=== PATIENT | female | born 1955 | race African-American/Black ===

== ENCOUNTER → 2016-05-26 | Outpatient (CLI) | payer MEDICARE, OTHER ==
[2015-09-28 11:23] VITALS: BP 103/61
[~2016-05-26] MED LIST: DIAZEPAM10 MG PO; DOCU-27 PO; GABA600T PO; LISI-373 PO; LISI1TAB3 PO; OXYC-244 PO; OXYC1TAB7 PO; ROPI1TAB PO; SERT25TA PO
--- NOTE | 2016-05-26 11:10 | PAIN ---
DATE OF SERVICE: 05/26/2016 PROGRESS NOTE DIAGNOSES: 1. Cervicalgia with cervical spinal stenosis. 2. Headaches. HISTORY OF PRESENT ILLNESS: The patient is a 60-year-old female who returns for followup status post medication management with oxycodone. The patient reports she is doing fairly well with this. This is controlling the pain in the base of the neck and shoulders to a fair extent, but she is having increased headaches more frequently, with some blurred vision during this as well, aching in the head as well as a constant headache over the past month or so. The patient is worried that she may have some sort of intracranial process occurring. We did do an MRI scan of her head about a year and a half ago, which was normal except for some paranasal sinus congestion, but she is quite worried about this at this time. She did have a recent ophthalmologic checkup with the new lenses prescription for her glasses, but this has not helped with the blurred vision and headaches. The patient reports, it is an 8 on a scale of 10 in the head, neck and shoulder and is being very well controlled with the oxycodone by about 70%-75% without significant side effects. The patient rates the pain as an 8 on a scale of 10 today. The patient's old chart was reviewed as her current medication regimen updated. Current review of systems updated today as well. PHYSICAL EXAMINATION: VITAL SIGNS: Today, the patient's blood pressure is 129/88, pulse 81, respirations 20, temperature 98.2 degrees Fahrenheit, height is 5 feet 6 inches and weighs 207 pounds. GENERAL: She is awake, alert, oriented, appropriate, very pleasant demeanor. HEENT: Shows normocephalic, atraumatic. Extraocular movements are intact and symmetrical. Oral cavity shows mucous membranes are moist and pink. Dentition is intact. NECK: Shows anterior throat supple without palpable lymphadenopathy noted. Swallow reflex is symmetrical. CHEST: Shows normal on inspection. Breath sounds are clear bilaterally. HEART: Shows S1 and S2 clear. ABDOMEN: Soft, nontender, nondistended. No palpable organomegaly is noted. Posterior cervical musculature shows some moderate tenderness with palpation in the lower distribution of the cervical paraspinous muscles as well as superomedial and lateral trapezius bilaterally with fair, diffuse tenderness, but without trigger points or radiation demonstrated. EXTREMITIES: The patient's upper extremities show deep tendon reflexes at 1+ in the biceps and triceps tendons. Motor exam is strong with veteran appeals reviewer strength rated at 5/5 at his biceps and triceps flexion and equal. PLAN: Options were discussed with the patient. We will refill the patient's oxycodone for a 90-day supply. Also, we will reinitiate her physical therapy as she was unable to attend this last time that it was ordered because of the difference in phone number, which was not notified. Anyway, we will have this reinitiated. Also check MRI scan of the head and brain because of the increased frequency of headaches and visual disturbances. The patient will follow up after the MRI scan is obtained and we will call the results. We will follow up in the office in about 90 days or sooner if necessary. CLARE MARLEY MD DR: VIVIANE/sebastian JOB#: [id number] / [id number]
== END | disposition home or self-care (01) ==
LOC: PNCL 09:44
PROVIDERS: ATTEND Anesthesiology
DX: M54.2 Cervicalgia (principal); M48.02 Spinal stenosis, cervical region; R51 Headache
CPT/HCPCS: G0463

== ENCOUNTER → 2016-06-20 | Outpatient (CLI) | payer MEDICARE, OTHER ==
[2015-09-28 11:23] VITALS: BP 103/61
--- NOTE | 2016-06-20 10:41 | RAD ---
PROCEDURE Brain MRI without contrast. HISTORY Headaches and blurred vision. Colon cancer. TECHNIQUE Multiplanar and multi sequence magnetic resonance imaging of the brain was performed without contrast. COMPARISON 02/23/2015. FINDINGS There is no restricted diffusion to suggest acute or subacute infarction. There is no susceptibility effect to suggest hemorrhage. There is no mass effect or midline shift. There is no hydrocephalus. There are extensive scattered areas of T2/FLAIR hyperintensity throughout the cerebral white matter, a nonspecific finding. The orbits are unremarkable. There is mild paranasal sinus mucosal thickening. There is a small amount of fluid within the mastoid air cells. There are normal flow voids within the cerebral vessels. IMPRESSION 1. No acute intracranial finding 2. Extensive areas of signal change throughout the cerebral white matter, similar compared to the prior study. Given the age of the patient, this is likely due to chronic small vessel disease. Given the configuration and location of several lesions, demyelinating disease may also be considered in the appropriate clinical setting. Electronically signed by: Yana Carpenter (Jun 20, 2016 10:39:28)
== END ==
LOC: MRI 09:22
PROVIDERS: ATTEND Anesthesiology
DX: I73.89 Other specified peripheral vascular diseases (principal); I10 Essential (primary) hypertension; M19.90 Unspecified osteoarthritis, unspecified site; F41.9 Anxiety disorder, unspecified; F32.9 Major depressive disorder, single episode, unspecified; Z85.038 Personal history of other malignant neoplasm of large intestine
CPT/HCPCS: 70551

== ENCOUNTER → 2016-07-07 | Outpatient (CLI) | payer MEDICARE, OTHER ==
[2015-09-28 11:23] VITALS: BP 103/61
--- NOTE | 2016-07-07 12:57 | RAD ---
EXAM: DIGITAL SCREEN BILAT W/CAD HISTORY: Routine Screening. COMPARISON: 06/23/2015 Standard mammographic views are obtained of the bilateral breasts. This study was interpreted with the benefit of Computerized Aided Detection (CAD). FINDINGS: The breast parenchyma shows scattered fibroglandular densities. Breast parenchyma level II. There is no definite new suspicious spiculated mass or worrisome new cluster of microcalcifications. IMPRESSION: No definite new suspicious mass. BI-RADS CATEGORY: 1 NEGATIVE RECOMMENDED FOLLOW-UP: 12M 12 MONTH FOLLOW-UP PQRS compliance statement: Patient information was entered into a reminder system with a target due date for the next mammogram. Mammography is a sensitive method for finding small breast cancers, but it does not detect them all and is not a substitute for careful clinical examination. A negative mammogram does not negate a clinically suspicious finding and should not result in delay in biopsying a clinically suspicious abnormality. "Our facility is accredited by the [employer] Mammography Program."
== END | disposition home or self-care (01) ==
LOC: MAMMO 11:00
PROVIDERS: ATTEND Family Medicine
DX: Z12.31 Encounter for screening mammogram for malignant neoplasm of breast (principal)
CPT/HCPCS: G0202; 77067

== ENCOUNTER → 2016-08-18 | Outpatient (CLI) | payer MEDICARE, OTHER ==
[2015-09-28 11:23] VITALS: BP 103/61
--- NOTE | 2016-08-18 23:27 | PAIN ---
DATE OF SERVICE: 08/18/2016 DIAGNOSES: Cervical spinal stenosis with cervicalgia. HISTORY OF PRESENT ILLNESS: This is a 60-year-old female who returns for followup status post medication management with oxycodone 7.5 mg. The patient reports she is doing fairly well with this very stable regimen. She was having some headaches and we did an MRI scan of her brain on the last visit only showing some changes in vasculature consistent with age. No other acute findings. The patient was given a report copy of this as well. The patient reports still significant pain in the base of the neck, right shoulder, rates as 9 on a scale of 10, sharp and aching all today, but does very well with the medications about 70% improvement with medications and without side effects with her oxycodone. The patient reports no new motor or sensory deficits or other complaints, but has had some increased pain secondary to some rainy weather we had recently, but otherwise reports she is doing fairly well day-to-day seeking care of her granddaughter first who had seizure disorder and this has been somewhat stressful for her as well. Otherwise, no new motor or sensory deficits or other complaints. The patient reports her pain is a 9 on a scale of 10 at its worst. Currently, a 4 on a scale of 10 today. PHYSICAL EXAMINATION: VITAL SIGNS: The patient's blood pressure 102/61, pulse 78, respirations 16, temperature is 97.8 degrees Fahrenheit, and weight is 206 pounds. GENERAL: The patient is awake, alert, oriented, appropriate, very pleasant demeanor. HEENT: Head shows normocephalic, atraumatic. Extraocular movements are intact and symmetrical. Oral cavity shows mucous membranes moist and pink. Dentition is intact. NECK: Shows anterior throat supple without palpable lymphadenopathy noted. Swallow reflex is symmetrical. Posterior cervical musculature shows some moderate tenderness with palpation in the inferior aspect of the cervical paraspinous muscles as well as superior medial and lateral trapezius, but symmetrical on inspection without atrophy, hypertrophy and with good rotational motion of the cervical spine, somewhat guarded with extension, but not with forward flexion, right or left lateral rotation. EXTREMITIES: Upper extremities showed deep tendon reflexes at 2+ in the biceps and triceps tendons. Motor exam is strong with foundation digger strength rated at 5/5 as is biceps and triceps flexion. Peripheral pulses are 2+. No peripheral edema bilaterally. Options were discussed with the patient and the patient's old chart was reviewed as her current medication regimen and updated. Current review of systems updated to date as well. We will refill the patient's oxycodone for a 6-day period 2 months with instructions, side effects to be aware of. The patient will also have urinalysis today as a routine screening. The patient has had appropriate K-TRACS reporting to date as well as appropriate urinalysis to date. We will recheck this as well today on schedule. The patient will follow up in approximately 2 months or sooner if necessary. CLARE MARLEY MD DR: VIVIANE/sebastian JOB#: [id number] / [id number]
== END | disposition home or self-care (01) ==
LOC: PNCL 09:33
PROVIDERS: ATTEND Anesthesiology
DX: M48.02 Spinal stenosis, cervical region (principal)
CPT/HCPCS: G0463

== ENCOUNTER → 2016-10-06 | Outpatient (CLI) | payer MEDICARE, OTHER ==
[2015-09-28 11:23] VITALS: BP 103/61
--- NOTE | 2016-10-06 16:51 | PAIN ---
DATE OF SERVICE: 10/06/2016 PROGRESS NOTE FOR PAIN CLINIC DIAGNOSES: Cervical spinal stenosis with cervicalgia. HISTORY OF PRESENT ILLNESS: The patient is a 60-year-old female, who returns for followup status post medication management with oxycodone 7.5 mg. The patient has been doing very well with this. She reports that she continues to do well with about 70%-75% improvement with her pain and without significant side effects. The patient reports occasional constipation, but does take care with increase hydration and some MiraLax. The patient reports she still has difficulty sleeping because her neck and right shoulder hurting, but during the day, is very well controlled. She is taking her medication. The patient reports it is 8 on a scale of 10, and is worst is a 9 on a scale of 10. No new motor or sensory deficits or other findings. The patient does complain of some yeast infection underneath the right breast. We decreased ____[id number] antifungals try for this as well. PHYSICAL EXAMINATION: VITAL SIGNS: The patient's blood pressure is 130/99, pulse 83, respirations 18, temperature is 98.0 degrees Fahrenheit, weight is 209 pounds. GENERAL: The patient is awake, alert, oriented, appropriate, very pleasant demeanor. HEENT: Head shows normocephalic, atraumatic. Extraocular movements are intact and symmetrical. Oral cavity, mucous membranes are moist and pink. Dentition is intact. NECK: Shows anterior throat supple without palpable lymphadenopathy noted. Swallow reflex is symmetrical. CHEST: Shows normal on inspection. Breath sounds are clear to auscultation bilaterally. HEART: Shows S1 and S2 clear. ABDOMEN: Soft, nontender, nondistended. No palpable organomegaly, no rebound or guarding demonstrated. She has well-healed surgical scars noted. BACK: The patient's back shows spine grossly midline. Lumbar and cervical lordotic curvature is normal in appearance and thoracic kyphotic curvature is normal in appearance. Cervical paraspinous muscle shows some moderate tenderness with palpation in the base of the neck, more on the right side than the left with some tenderness in the trapezius on that side, but without significant trigger points, without radiation of pain. EXTREMITIES: Upper extremities showed deep tendon reflexes 1+ in the biceps and triceps tendons. Motor exam is strong with hemmer automatic strength rated at 5/5 as is biceps and triceps flexion. PLAN: Options were discussed with the patient and the patient's old chart was reviewed as her current medication regimen updated. Current review of systems updated today as well. We will refill the patient's oxycodone for a 2-month supply. The patient was given instruction as well as side effects to be aware of. She has had appropriate K-TRACS reporting as well as appropriate urinalysis to date and the patient was given 2-month prescription, also for the yeast infection, we will recommend clotrimazole cream or sprays ____ similar product. She will check with her pharmacist on the [id number] remedies for this as well and follow up as scheduled. CLARE MARLEY MD DR: VIVIANE/sebastian JOB#: [id number] / [id number]
== END | disposition home or self-care (01) ==
LOC: PNCL 09:59
PROVIDERS: ATTEND Anesthesiology
DX: M48.02 Spinal stenosis, cervical region (principal); M54.2 Cervicalgia
CPT/HCPCS: G0463

== ENCOUNTER → 2016-12-01 | Outpatient (CLI) | payer MEDICARE, OTHER ==
[2015-09-28 11:23] VITALS: BP 103/61
[~2016-12-01] MED LIST changes: +DOCU-109 PO; -DOCU-27 PO; -OXYC-244 PO; +OXYC-327 PO
== END | disposition home or self-care (01) ==
LOC: PNCL 09:58
PROVIDERS: ATTEND Anesthesiology
DX: M54.2 Cervicalgia (principal)
CPT/HCPCS: G0463

== ENCOUNTER → 2017-01-08 | Outpatient (CLI) | payer MEDICARE, OTHER ==
[2015-09-28 11:23] VITALS: BP 103/61
[~2017-01-08] MED LIST changes: +IOHEXOL 240 MG/ML 50ML VIAL. PO ONE; +IOHEXOL 300 MG/ML 75 ML VIAL IV ONE
--- NOTE | 2017-01-08 13:43 | RAD ---
CT of the chest, abdomen and pelvis with contrast, 01/08/2017: History: Colonic malignancy, follow-up Multidetector CT imaging was performed following oral and IV administration of contrast. Comparison is made to a study from 10/06/2015. Small mediastinal lymph nodes are seen without evidence of pathologic enlargement. Coronary artery calcifications are noted. There are mild emphysematous changes in the lungs. Mild dependent opacities are compatible with atelectasis. No pulmonary mass is evident. There is a coarse parenchymal calcification in the left base. No pleural fluid is present. No hepatic abnormality is detected. The gallbladder is unremarkable. No pancreatic abnormality is seen. The spleen is of normal size. Small unchanged bilateral renal lesions are probably cysts. Several of these are too small to definitively characterize. The kidneys show no evidence of obstruction. No adrenal abnormality is detected. There is mild aortoiliac calcific plaquing. No abdominal or pelvic adenopathy is seen. The bowel loops are not dilated. No free fluid is evident in the abdomen or pelvis. IMPRESSION: No CT evidence of metastatic disease in the chest, abdomen or pelvis. PQRS Compliance Statement: One or more of the following individualized dose reduction techniques were utilized for this examination: 1. Automated exposure control 2. Adjustment of the mA and/or kV according to patient size 3. Use of iterative reconstruction technique
== END | disposition home or self-care (01) ==
LOC: CT 08:22
PROVIDERS: ATTEND Internal Medicine Hematology & Oncology
DX: C18.7 Malignant neoplasm of sigmoid colon (principal); I25.10 Atherosclerotic heart disease of native coronary artery without angina pectoris
CPT/HCPCS: 71260; 74177

== ENCOUNTER → 2017-01-26 | Outpatient (CLI) | payer MEDICARE, OTHER ==
[2015-09-28 11:23] VITALS: BP 103/61
[~2017-01-26] MED LIST changes: -IOHEXOL 240 MG/ML 50ML VIAL. PO ONE; -IOHEXOL 300 MG/ML 75 ML VIAL IV ONE
--- NOTE | 2017-01-26 11:43 | PAIN ---
DATE OF SERVICE: 01/26/2017 PROGRESS NOTE FOR PAIN CLINIC DIAGNOSES: 1. Cervicalgia. 2. Cervical spinal stenosis. HISTORY OF PRESENT ILLNESS: The patient is a 61-year-old female who returns for followup, status post medication management with oxycodone. The patient reports she is doing very well with this, been on a very stable regimen, 7.5 mg, taking this up to 4 times daily. The patient reports she has been doing quite well with the pain control, still has pain in the base of the neck and shoulder bilaterally, also into the right upper extremity, but it is sporadic. The patient reports it is not there all the time, reports that when it is, it is a 9 on a scale of 10 and at its least, it is an 8 on a scale of 10, but today, it is a 3 on a scale of 10. The patient reports she has some difficulty sleeping at night because of the pain, but also does not sleep well. She sleeps about 3 hours at a time. The patient reports no new motor or sensory deficits. Reports the pain is sharp at times and aching other times. PHYSICAL EXAMINATION: VITAL SIGNS: Shows blood pressure 142/97, pulse 87, respirations 20, temperature is 97.9 degrees Fahrenheit. Height is 5 feet 6 inches, weight is 216 pounds. GENERAL: The patient is awake, alert, oriented, appropriate, very pleasant demeanor. HEENT: Head shows normocephalic, atraumatic. Extraocular movements are intact and symmetrical. Oral cavity shows mucous membranes moist and pink. Dentition is intact. NECK: Shows anterior throat supple. CHEST: Shows normal on inspection. Breath sounds are clear to auscultation bilaterally. HEART: Shows S1 and S2 clear. ABDOMEN: Soft, nontender, nondistended. No palpable organomegaly is noted. BACK: Shows spine grossly in the midline. Cervical paraspinous muscle shows some moderate tenderness with palpation, but symmetrical in the inferior aspect of the paraspinous musculature as well as superior medial and lateral trapezius, but without trigger points, without significant radiation. EXTREMITIES: The patient's upper extremities show deep tendon reflexes 1+ in the biceps and triceps tendons. Motor exam is strong with 5/5 etcher enameling strength, biceps and triceps flexion. Pulses are 2+ in radial distribution. No peripheral edema is noted. Options were discussed with the patient and the patient's old chart was reviewed. Her current medication regimen updated. Current review of systems updated today as well and we will refill the patient's oxycodone for a 2-month prescription. The patient has had appropriate K-TRACS reporting as well as appropriate urinalysis to date. We will renew her narcotic contract today as well as it has been years since the last one. The patient was given instructions as well as side effects to be aware with the medication and will follow up in approximately 2 months. The patient was also counseled as to diet, activity, exercise and hydration, especially as she is on opioid medication to combat constipation, where she is doing a good job so far. CLARE MARLEY MD DR: VIVIANE/sebastian JOB#: [id number] / [id number]
== END | disposition home or self-care (01) ==
LOC: PNCL 09:17
PROVIDERS: ATTEND Anesthesiology
DX: M48.02 Spinal stenosis, cervical region (principal); M25.511 Pain in right shoulder
CPT/HCPCS: G0463

== ENCOUNTER → 2017-05-22 | Outpatient (CLI) | payer MEDICARE, OTHER | END | disposition home or self-care (01) | LOC: PNCL 11:46 | DX: M48.02 Spinal stenosis, cervical region (principal) | CPT/HCPCS: G0463 ==

== ENCOUNTER → 2017-07-17 | Outpatient (CLI) | payer MEDICARE, OTHER | END | disposition home or self-care (01) | LOC: PNCL 11:19 | DX: M48.02 Spinal stenosis, cervical region (principal) | CPT/HCPCS: G0463 ==

== ENCOUNTER → 2017-09-11 | Outpatient (CLI) | payer MEDICARE, OTHER | END | disposition home or self-care (01) | LOC: PNCL 08:47 | DX: M48.02 Spinal stenosis, cervical region (principal) | CPT/HCPCS: G0463 ==

== ENCOUNTER → 2017-11-06 | Outpatient (CLI) | payer MEDICARE, OTHER | END | disposition home or self-care (01) | LOC: PNCL 09:06 | DX: M48.02 Spinal stenosis, cervical region (principal) | CPT/HCPCS: G0463 ==

== ENCOUNTER → 2017-12-25 | Outpatient (CLI) | payer MEDICARE, OTHER | END | disposition home or self-care (01) | LOC: PNCL 08:54 | DX: M48.02 Spinal stenosis, cervical region (principal); I10 Essential (primary) hypertension; F41.9 Anxiety disorder, unspecified; G43.909 Migraine, unspecified, not intractable, without status migrainosus; F32.9 Major depressive disorder, single episode, unspecified; K21.0 Gastro-esophageal reflux disease with esophagitis; Z86.010 Personal history of colon polyps; Z85.038 Personal history of other malignant neoplasm of large intestine | CPT/HCPCS: G0463 ==

== ENCOUNTER → 2018-02-19 | Outpatient (CLI) | payer MEDICARE, OTHER ==
[2015-09-28 11:23] VITALS: BP 103/61
--- NOTE | 2018-02-19 22:27 | PAIN ---
DATE OF SERVICE: 02/19/2018 PROGRESS NOTE FOR PAIN CLINIC DIAGNOSES: Cervicalgia with cervical spinal stenosis. HISTORY OF PRESENT ILLNESS: The patient is a 62-year-old female who returns for followup status post medication management with oxycodone and gabapentin. The patient reports she has been doing very well, has been on very stable regimen indeed, has been on very stable medication regimen for extended period of time. The patient reports no significant side effects with the medication. The oxycodone has decreased the pain significantly by about 75% by her estimation for most times. The patient reports she still has some pain in the neck and shoulder and in the right shoulder, it has been bothering her quite a bit. She reports that she has a bone spur in the shoulders. She is following up with her orthopedic surgeon later this month and has an MRI scan this week. The patient reports otherwise doing fairly well with the neck is fairly tolerated with the pain medication, which is not causing any sedation, nausea or constipation or itching. The patient reports her pain is worse at 9, average at about 8 at its least and is an 8 on a scale of 10 today as well, mainly from the right shoulder, which is becoming more and more painful. The patient reports no new motor or sensory deficits and no new changes. The patient reports it is difficult to sleep with the right shoulder and only get about 2-3 hours of sleep at night when she lays on her right side, especially. PHYSICAL EXAMINATION: VITAL SIGNS: The patient's blood pressure 136/82, pulse 83, respirations are 18, temperature 98.0 degrees Fahrenheit, height is 5 feet 6 inches and weight is 212 pounds. GENERAL: The patient is awake, alert, oriented, appropriate and very pleasant demeanor. HEENT: Head shows normocephalic and atraumatic. Extraocular movements are intact and symmetrical. Oral cavity, mucous membranes are moist and pink. Dentition is intact NECK: Shows anterior throat supple without palpable lymphadenopathy noted. Swallow reflex is symmetrical. CHEST: Shows normal on inspection. Breath sounds are clear to auscultation bilaterally. HEART: Shows S1 and S2 clear. No murmurs auscultated. ABDOMEN: Soft, nontender and nondistended. No palpable organomegaly is noted. No rebound or guarding demonstrated. BACK: Shows spine grossly in the midline. Normal appearing thoracic kyphosis and lumbar lordotic curvature. Cervical paraspinous muscle shows some moderate tenderness but only diffusely throughout the upper, middle and lower distribution of the paraspinous muscles bilaterally into the superior medial trapezius. Right shoulder shows significant tenderness with any attempted abduction even greater than about 10-15 degrees with very significant pain in the anterior aspect of the shoulder as well as the superior aspect of the right shoulder. EXTREMITIES: Upper extremity deep tendon reflexes are 2+ in the biceps, triceps tendons. Motor exam is 5/5 with left jewelry manager strength in approximately 3/5 with right jewelry manager strength. Peripheral pulses are 2+ radial distribution. No peripheral edema is noted. Options were discussed with the patient. The patient's old chart was reviewed as well as her current medication regimen updated. Current review of systems updated today as well. We will refill the patient's oxycodone and she has had appropriate K-TRACS reporting as well as appropriate urinalysis to date and will fill this for a 60-day prescription as well as gabapentin at 600 mg 3 times daily. The patient was given instructions as well as side effects to be aware of with each of the medication. We will follow up in approximately 2 months or sooner as scheduled. CLARE MARLEY MD DR: VIVIANE/sebastian JOB#: [id number] / [id number]
== END | disposition home or self-care (01) ==
LOC: PNCL 09:20
PROVIDERS: ATTEND Anesthesiology
DX: M48.02 Spinal stenosis, cervical region (principal)
CPT/HCPCS: G0463

== ENCOUNTER → 2018-04-16 | Outpatient (CLI) | payer MEDICARE, OTHER ==
[2015-09-28 11:23] VITALS: BP 103/61
[~2018-04-16] MED LIST changes: -OXYC-327 PO; +OXYC1TAB19 PO
--- NOTE | 2018-04-16 17:47 | PAIN ---
DATE OF SERVICE: 04/16/2018 DIAGNOSES: Cervical spinal stenosis with cervicalgia: HISTORY OF PRESENT ILLNESS: The patient is a 62-year-old female who returns for followup status post medication management with oxycodone and gabapentin. The patient reports she is doing fairly well with this, but her shoulder on the right side has been hurting significantly. The patient is going for an MRI of it later today actually and then will follow up with an orthopedic surgeon, she does not have one yet, but she will have this evaluated once the MRI is finished. The patient reports still pain is aching and dull; shooting, sharp into the right hand, right arm and fingers with numbness and tingling; stabbing, cramping, burning, sometimes becoming more constant and aching in the neck, but generally well controlled with the oxycodone and gabapentin. The patient reports the pain is 9 on a scale of 10 at its worst, 8 on average, 8 at its least and is an 8 today. The patient reports it is mainly in her shoulder, otherwise, her neck is doing fairly well, but she is only sleeping about 2-3 hours at a time because the pain in her shoulder is waking her up frequently. The patient reports no new motor or sensory deficits or other complaints. PHYSICAL EXAMINATION: VITAL SIGNS: The patient's blood pressure is 137/101, pulse 81, respirations rate 18, temperature 97.8 degrees Fahrenheit, height is 5 feet 6 inches, weight is 211 pounds. GENERAL: The patient is awake, alert, oriented, appropriate, very pleasant demeanor. HEENT: Shows normocephalic, atraumatic. Extraocular muscles are intact and symmetrical. Oral cavity: Mucous membranes moist and pink. Dentition is intact. NECK: Shows anterior throat supple without palpable lymphadenopathy noted. Swallow reflex is symmetrical. CHEST: Shows normal on inspection. Breath sounds clear to auscultation bilaterally. HEART: Shows S1, S2 clear. No murmurs auscultated. ABDOMEN: Soft, nontender, nondistended. No palpable organomegaly is noted. No rebound or guarding demonstrated. BACK: Shows spine grossly in the midline. Normal-appearing thoracic kyphosis and minor flattening of lumbar lordotic curvature. Cervical lordotic curvature is intact. Cervical paraspinous muscle shows symmetrical on inspection. On palpation, it shows some moderate tenderness diffusely, but only diffusely in the inferior aspect of the cervical paraspinous muscles and some in the middle aspect of the cervical paraspinous musculature, but without radiation, without atrophy or hypertrophy. The patient has good rotation of motion of cervical spine, both laterally greater than 45 degrees right and left, also full extension as well as full forward flexion without significant increase in pain. The patient's upper extremities show deep tendon reflexes 2+ in the biceps and triceps tendons. Motor exam is strong with nutritional health coach strength rated 5/5 on the left and 4/5 to 3/5 on the right. This is true with bicep and tricep flexion on the right 3/5 and 5/5 on the left as well. The patient's right shoulder shows significant tenderness with palpation anterior, posterior and lateral deltoid diffusely. With abduction, it is very tender, the patient is only able to abduct about 45 degrees from the side of her body without significant pain in the posterior aspect of the shoulder. EXTREMITIES: Peripheral pulses upper extremities are 2+ radial. No peripheral edema is noted bilaterally. ASSESSMENT AND PLAN: Options were discussed with the patient. The patient's old chart was reviewed as was her current medication regimen updated. Current review of systems updated today as well. We will refill the patient's oxycodone and gabapentin for a 2-month prescription as the patient has had appropriate K-TRACS reporting as well as appropriate urinalysis to date. The patient was given instruction as well as side effects to be aware of each of the medication. Again, the patient will follow up with her MRI scan today and orthopedist afterwards and will return in approximately 2 months or sooner if necessary. CLARE MARLEY MD DR: VIVIANE/sebastian JOB#: [id number] / [id number]
== END | disposition home or self-care (01) ==
LOC: PNCL 09:40
PROVIDERS: ATTEND Anesthesiology
DX: M48.02 Spinal stenosis, cervical region (principal); I10 Essential (primary) hypertension; K21.9 Gastro-esophageal reflux disease without esophagitis; F17.210 Nicotine dependence, cigarettes, uncomplicated
CPT/HCPCS: G0463

== ENCOUNTER → 2018-06-26 | Outpatient (CLI) | payer MEDICARE, OTHER ==
[2015-09-28 11:23] VITALS: BP 103/61
--- NOTE | 2018-06-26 19:21 | PAIN ---
DATE OF SERVICE: 06/26/2018 DIAGNOSIS: Cervical spinal stenosis with cervicalgia. HISTORY OF PRESENT ILLNESS: The patient is a 62-year-old female who returns for followup status post medication management with oxycodone 7.5 mg. The patient did very well with this, has been on very stable regimen, reports she is still doing quite well, reports her pain is a 9 on a scale of 10 at its worst, 6 on average and 2 at its least, is a 3 today. The patient reports pain in the neck and the bilateral shoulders, more on the right than the left, but very well controlled with the oxycodone. The patient reports she is sleeping fairly well at night, does not awaken her from sleep, that she does not always awaken from the pain, sometimes every 3 hours she can awaken from sleep just because she is unable to sleep. The patient reports otherwise she is increasing her distance walking and doing activities at home with traveling with greater ease and comfort without significant impairment, no significant side effects, reports her overall improvement about 70-80% with the medications, again without side effects. The patient reports no new motor or sensory deficits, no new changes. Describes the pain as aching and dull, sometimes radiating to the right shoulder, but only rarely. PHYSICAL EXAMINATION: VITAL SIGNS: The patient's blood pressure is 136/81, pulse 86, respirations are 18, temperature 97.4 degrees Fahrenheit, height is 5 feet 6 inches, weight is 216 pounds. GENERAL: The patient is awake, alert, oriented, appropriate, very pleasant demeanor. HEENT: Normocephalic, atraumatic. Extraocular movements are intact and symmetrical. Oral cavity: Mucous membranes are moist and pink. Dentition is intact. NECK: Shows anterior throat supple without palpable lymphadenopathy noted. Swallow reflex symmetrical. CHEST: Shows normal on inspection. Breath sounds clear to auscultation bilaterally. HEART: Shows S1, S2 clear. No murmurs auscultated. ABDOMEN: Soft, nontender, nondistended. No palpable organomegaly is noted. No rebound or guarding demonstrated. BACK: Shows spine grossly in the midline, normal cervical lordotic curvature. Cervical paraspinous muscle shows symmetrical on inspection, with palpation shows some mild tenderness in the inferior aspect of cervical paraspinous muscles and superior medial trapezius as well as lateral trapezius, slightly more tender on the right than the left, but with good rotational motion of the cervical spine without difficulty, both laterally as well as extension and flexion. EXTREMITIES: Upper extremities show deep tendon reflexes 2+ in the biceps, triceps tendons. 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 Peripheral pulses are 2+ radial distribution. No peripheral edema is noted. Options were discussed with the patient. The patient's old chart was reviewed as her current medication regimen updated. Current review of systems updated today as well. We will refill the patient's oxycodone for 2-month prescription. She has had appropriate K-TRACS reporting as well as appropriate urinalyses to date. We will also repeat urinalysis today as a routine screening. I have renewed the patient's narcotic contract. The patient was given a copy of this as well and will follow up in approximately 2 months or sooner as necessary. The patient was given instructions as well as side effects to be aware of each of medications and will follow up as noted. CLARE MARLEY MD DR: VIVIANE/sebastian JOB#: [id number] / [id number]
== END | disposition home or self-care (01) ==
LOC: PNCL 09:18
PROVIDERS: ATTEND Anesthesiology
DX: M48.02 Spinal stenosis, cervical region (principal); I10 Essential (primary) hypertension; Z87.891 Personal history of nicotine dependence
CPT/HCPCS: G0463

== ENCOUNTER → 2018-08-21 | Outpatient (CLI) | payer MEDICARE, OTHER ==
[2015-09-28 11:23] VITALS: BP 103/61
[~2018-08-21] MED LIST changes: +ONDA4TAB7 PO
--- NOTE | 2018-08-21 23:33 | PAIN ---
DATE OF SERVICE: 08/21/2018 PROGRESS NOTE FOR PAIN CLINIC: DIAGNOSES: Cervical spinal stenosis with cervicalgia. HISTORY OF PRESENT ILLNESS: The patient is a 62-year-old female who returns for followup status post medication management with oxycodone well as gabapentin for persistent cervical spinal stenosis and cervicalgia. The patient reports she has been doing fairly well on the medication with about 75% improvement overall without significant side effects from the oxycodone as well as gabapentin. The patient's chief complaint is that her right foot is hurting. She has what appears to be a plantar's wart on the sole of the right foot at about the metatarsal head more to the lateral aspect. The patient reports it is significantly tender. She has been walking favoring her right leg significantly, which is causing some back pain as well as the neck pain and shoulder pain. The patient reports otherwise doing fairly well. Medications have been stable regimen. No new side effects. No new changes. She is following up with a ticket sales agent later this week to evaluate the foot as well. The patient reports it is waking her from sleep at least 3-4 times at night, although her neck is causing some pain as well. She needs to reposition, take pain medication or get out of bed, change positions to get better. The patient otherwise has been doing fairly well with distance walking except for her right foot and doing household activities without significant side effects from the medication. The patient reports the pain is a 9 on a scale of 10 at its worst and this is due to her foot, least and average, is a 9 today again with the foot. The neck and shoulder pain is about 4. The patient reports no new changes. The patient describes the neck and the shoulder pain is an aching pain, it is dull and sharp. Foot is more of stabbing, becoming more constant pain. PHYSICAL EXAMINATION: VITAL SIGNS: Today, the patient's blood pressure is 156/98, pulse is 80, respirations 18, temperature 97.8 degrees Fahrenheit. Height is 5 feet 6 inches, weight is 221 pounds. GENERAL: The patient is awake, alert, oriented, appropriate, very pleasant demeanor. HEENT: Head shows normocephalic, atraumatic. Extraocular movements are intact and symmetrical. Oral cavity: Mucous membranes moist and pink. Dentition is intact. NECK: Shows anterior throat supple without palpable lymphadenopathy noted. Swallow reflex symmetrical. CHEST: Shows normal on inspection. Breath sounds clear to auscultation bilaterally. HEART: Shows S1, S2 clear. No murmurs auscultated. ABDOMEN: Soft, nontender, nondistended. No palpable organomegaly is noted. No rebound or guarding demonstrated. BACK: The patient's neck shows good rotational motion both laterally greater than 45 degrees right and left as well as full extension, full forward flexion without significant pain reported. EXTREMITIES: The patient's upper extremities show deep tendon reflexes 2+ in the biceps, triceps tendons. 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 Shoulder shrug is mildly tender bilaterally with resistance, but no loss of strength on resistance. Peripheral pulses are 2+ radial distribution. No peripheral edema is noted. Options were discussed with the patient. The patient's old chart was reviewed as his current medication regimen updated. Current review of systems updated today as well and we discussed a potential for physical therapies, interventional techniques and she is adamantly against any interventional techniques with her neck as we had discussed these in the past as well. She is doing quite well with her medication regimen. We will refill this for 2-month period. The patient has had appropriate K-TRACS reporting as well as appropriate urinalysis to date. We will have urinalysis taken today as well for a routine screening. The patient will follow up in approximately 2 months or sooner as necessary, was given instructions as well as side effects to be aware of with the medication and again was encouraged to follow up with her right foot with her ticket sales agent later this week. CLARE MARLEY MD DR: VIVIANE/sebastian JOB#: [id number] / [id number]
== END | disposition home or self-care (01) ==
LOC: PNCL 09:35
PROVIDERS: ATTEND Anesthesiology
DX: M48.02 Spinal stenosis, cervical region (principal); M25.519 Pain in unspecified shoulder; M54.9 Dorsalgia, unspecified
CPT/HCPCS: G0463

== ENCOUNTER 2018-09-20 22:22 | Emergency (ER) | payer MEDICARE, OTHER ==
[~2018-09-20] VITALS: Ht 167.6 cm; Wt 97.5 kg
[~2018-09-20 22:22] MED LIST changes: -ONDA4TAB7 PO
[2018-09-20] MEDS ORDERED: ONDANSETRON PF 4 MG/2 ML VIAL. IV ONE (23:30)
[2018-09-20] MEDS ORDERED: fentaNYL PF VIAL 100 MCG/2 ML VIAL IV ONE (23:30)
[2018-09-20] MEDS ORDERED: IV NORMAL SALINE 1000ML BAG 1,000 ML IV ONE (23:30)
--- NOTE | 2018-09-20 23:31 | PHYS DOC ---
Past Medical History Past Medical History: Cancer, Hypertension Additional Past Medical Histor: neuropathy Past Surgical History: Other Additional Past Surgical Histo: colon resection, hernia repair Alcohol Use: Rarely Drug Use: None Adult General Chief Complaint Chief Complaint: NAUSEA/VOMITING/DIARRHA HPI HPI Patient is a 62 year old F who presents with abdominal pain. She states the pain began this morning around 8:00am. She reports diarrhea and nausea. She describes the pain as a stabbing sensation that is located in the mid abdomen with some radiation to the right side. There is also radiation of pain down the right leg. She has not eaten anything since yesterday afternoon. She denies pain with urination or blood in her stool. She reports feeling lightheaded with hot and cold flashes as well. Review of Systems Review of Systems Constitutional: Denies fever or chills [] Eyes: Denies change in visual acuity, redness, or eye pain [] HENT: Denies nasal congestion or sore throat [] Respiratory: Denies cough or shortness of breath [] Cardiovascular: No additional information not addressed in HPI [] GI: Reports abdominal pain, nausea, vomiting, bloody stools or diarrhea [] : Denies dysuria or hematuria [] Musculoskeletal: Denies back pain or joint pain [] Integument: Denies rash or skin lesions [] Neurologic: Denies headache, focal weakness or sensory changes [] Endocrine: Denies polyuria or polydipsia [] All other systems were reviewed and found to be within normal limits, except as documented in this note. Current Medications Current Medications Current Medications Medications (Trade) Dose Ordered Sig/Zane Start Time Stop Time Status Last Admin Dose Admin Fentanyl Citrate (Fentanyl 2ml Vial) 50 mcg 1X ONCE 09/20/18 23:30 09/20/18 23:31 DC 09/20/18 23:41 50 MCG Morphine Sulfate (Morphine Sulfate) 6 mg 1X ONCE 09/21/18 00:30 09/21/18 00:31 DC 09/21/18 00:37 6 MG Ondansetron HCl (Zofran) 4 mg 1X ONCE 09/21/18 00:30 09/21/18 00:31 DC 09/21/18 00:37 4 MG Sodium Chloride 1,000 ml @ 1,000 mls/hr 1X ONCE 09/20/18 23:30 09/21/18 00:29 DC 09/20/18 23:42 1,000 MLS/HR Allergies Allergies Allergies Coded Allergies Type Severity Reaction Last Updated Verified Penicillins Allergy Intermediate Swelling 02/19/18 Yes cefuroxime Allergy Intermediate bBlisters hands. Joiny swelling 02/19/18 Yes ertapenem Allergy Intermediate Rash 02/19/18 Yes Physical Exam Physical Exam Constitutional: Well developed, well nourished, no acute distress, non-toxic appearance. [] HENT: Normocephalic, atraumatic, bilateral external ears normal, oropharynx moist, no oral exudates, nose normal. [] Eyes: PERRLA, EOMI, conjunctiva normal, no discharge. [] Neck: Normal range of motion, no tenderness, supple, no stridor. [] Cardiovascular:Heart rate regular rhythm, no murmur [] Lungs & Thorax: Bilateral breath sounds clear to auscultation [] Abdomen: Bowel sounds normal, tenderness to palpation in LRQ and RLQ [] Skin: Warm, dry, no erythema, no rash. [] Back: No tenderness, no CVA tenderness. [] Extremities: No tenderness, no cyanosis, no clubbing, ROM intact, no edema. [] Neurologic: Alert and oriented X 3, normal motor function, normal sensory function, no focal deficits noted. [] Psychologic: Affect normal, judgement normal, mood normal. [] Current Patient Data Vital Signs Vital Signs Date Time Temp Pulse Resp B/P (MAP) Pulse Ox O2 Delivery O2 Flow Rate FiO2 09/21/18 03:41 88 16 117/64 (81) 98 Room Air 09/20/18 22:35 97.8 97.8 Lab Values Laboratory Tests Test 09/20/18 23:20 09/21/18 01:46 White Blood Count 4.5 x10^3/uL (4.0-11.0) Red Blood Count 4.84 x10^6/uL (3.50-5.40) Hemoglobin 15.3 g/dL (12.0-15.5) Hematocrit 44.5 % (36.0-47.0) Mean Corpuscular Volume 92 fL (79-100) Mean Corpuscular Hemoglobin 32 pg (25-35) Mean Corpuscular Hemoglobin Concent 34 g/dL (31-37) Red Cell Distribution Width 12.6 % (11.5-14.5) Platelet Count 161 x10^3/uL (140-400) Neutrophils (%) (Auto) 72 % (31-73) Lymphocytes (%) (Auto) 23 % (24-48) L Monocytes (%) (Auto) 4 % (0-9) Eosinophils (%) (Auto) 0 % (0-3) Basophils (%) (Auto) 0 % (0-3) Neutrophils # (Auto) 3.3 x10^3uL (1.8-7.7) Lymphocytes # (Auto) 1.1 x10^3/uL (1.0-4.8) Monocytes # (Auto) 0.2 x10^3/uL (0.0-1.1) Eosinophils # (Auto) 0.0 x10^3/uL (0.0-0.7) Basophils # (Auto) 0.0 x10^3/uL (0.0-0.2) Urine Collection Type Unknown Urine Color Alysia Urine Clarity Clear Urine pH 5.0 Urine Specific [place] 1.025 Urine Protein Negative mg/dL (NEG-TRACE) Urine Glucose (UA) Negative mg/dL (NEG) Urine Ketones (Stick) Trace mg/dL (NEG) Urine Blood Negative (NEG) Urine Nitrite Negative (NEG) Urine Bilirubin Small (NEG) Urine Urobilinogen Dipstick 1.0 mg/dL (0.2 mg/dL) Urine Leukocyte Esterase Trace (NEG) Urine RBC Occ /HPF (0-2) Urine WBC 1-4 /HPF (0-4) Urine Squamous Epithelial Cells Few /LPF Urine Bacteria Few /HPF (0-FEW) Urine Mucus Marked /LPF Sodium Level 137 mmol/L (136-145) Potassium Level 3.9 mmol/L (3.5-5.1) Chloride Level 102 mmol/L (98-107) Carbon Dioxide Level 22 mmol/L (21-32) Anion Gap 13 (6-14) Blood Urea Nitrogen 11 mg/dL (7-20) Creatinine 0.7 mg/dL (0.6-1.0) Estimated GFR (Cockcroft-Gault) 101.9 BUN/Creatinine Ratio 16 (6-20) Glucose Level 103 mg/dL (70-99) H Calcium Level 8.8 mg/dL (8.5-10.1) Total Bilirubin 0.8 mg/dL (0.2-1.0) Aspartate Amino Transferase (AST) 24 U/L (15-37) Alanine Aminotransferase (ALT) 22 U/L (14-59) Alkaline Phosphatase 97 U/L (46-116) Total Protein 7.3 g/dL (6.4-8.2) Albumin 3.7 g/dL (3.4-5.0) Albumin/Globulin Ratio 1.0 (1.0-1.7) Lipase 126 U/L (73-393) Laboratory Tests 09/20/18 23:20 Laboratory Tests 09/21/18 01:46 EKG EKG [] Radiology/Procedures Radiology/Procedures [] Impressions: IMPRESSION: Limited evaluation of solid abdominal and pelvic organs due to lack of IV contrast. 1. No bowel obstruction. 2. Multiple punctate bilateral nonobstructing renal stones. 3. Multiple right renal lesions most likely simple cysts. Nonemergent ultrasound of the right kidney recommended. Electronically signed by: Shashi Suresh DO (09/21/2018 3:33 AM) [facility] [place] Course & Med Decision Making Course & Med Decision Making Pertinent Labs and Imaging studies reviewed. (See chart for details) er delay due to lab being down and also hemolyzed. 62 yo f prior colostomy due to colon cancer s/p resection back in 2010 now with ap, n/v/d. Initial evaluation patient did have significant tenderness she did really not tolerating exam well she was pushing the hand away. Given her previous surgical history we did do a CT scan abdomen and pelvis this was negative acute weakness up with a noncontrast because the patient had very difficult access I had low suspicion for bowel obstruction as the patient has been having some diarrhea and had been feeling much much better in the emergency room after the pain medication and IV fluids. In fact she did even request to go home prior to the results of the CT scan. I did convince her to wait and that I discharged her in stable condition once I cut the negative CT scan to give her good return precautions to come back for any new or concerning symptoms. [] Dragon Disclaimer Dragon Disclaimer This electronic medical record was generated, in whole or in part, using a voice recognition dictation system. Departure Departure Impression: Primary Impression: Nausea vomiting and diarrhea Disposition: HOME, SELF-CARE Condition: IMPROVED Referrals: NON,STAFF (PCP) Scripts Ondansetron Hcl (ZOFRAN) 4 Mg Tablet 4 MG PO PRN TID PRN for NAUSEA/VOMITING, #15 nausea/vomiting Prov: PETER JACOBS MD 09/21/18 PETER JACOBS MD September 20, 2018 23:30
[2018-09-20 23:42] LABS: BASO % 0 % (0-3); EOS % 0 % (0-3); HEMATOCRIT 44.5 % (36.0-47.0); HEMOGLOBIN 15.3 g/dL (12.0-15.5); LYMPH # 1.1 x10^3/uL (1.0-4.8); LYMPH % 23 % (24-48); MEAN CORPUSCULAR HEMOGLOBIN 32 pg (25-35); MEAN CORPUSCULAR HGB CONC 34 g/dL (31-37); MEAN CORPUSCULAR VOLUME 92 fL (79-100); MONO # 0.2 x10^3/uL (0.0-1.1); MONO % 4 % (0-9); NEUT # 3.3 x10^3uL (1.8-7.7); NEUT % 72 % (31-73); PLATELET COUNT 161 x10^3/uL (140-400); RED BLOOD COUNT 4.84 x10^6/uL (3.50-5.40); RED CELL DISTRIBUTION WIDTH 12.6 % (11.5-14.5); WHITE BLOOD COUNT 4.5 x10^3/uL (4.0-11.0)
[2018-09-21] MEDS ORDERED: ONDANSETRON PF 4 MG/2 ML VIAL. IV ONE (00:30)
[2018-09-21] MEDS ORDERED: MORPHINE SULFATE 10 MG/ML VIAL. IV ONE (00:30)
[2018-09-21 02:08] LABS: BILIRUBIN,URINE SMALL (NEG); CLARITY,URINE CLEAR; COLOR,URINE AMBER; NITRITE,URINE NEGATIVE (NEG); PROTEIN,URINE NEGATIVE (NEG-TRACE)
[2018-09-21 02:34] LABS: BACTERIA,URINE FEW /HPF (0-FEW); RBC,URINE OCC /HPF (0-2)
[2018-09-21 02:35] LABS: SQUAMOUS EPITHELIAL CELL,UR FEW /LPF
[2018-09-21 02:45] LABS: CALCIUM 8.8 mg/dL (8.5-10.1); CREATININE 0.7 mg/dL (0.6-1.0); GFR 101.9; POTASSIUM 3.9 mmol/L (3.5-5.1)
[2018-09-21 02:50] LABS: ALBUMIN 3.7 g/dL (3.4-5.0); TOTAL BILIRUBIN 0.8 mg/dL (0.2-1.0); TOTAL PROTEIN 7.3 g/dL (6.4-8.2)
--- NOTE | 2018-09-21 03:36 | RAD ---
PQRS Compliance statement: One or more of the following individualized dose reduction techniques were utilized for this examination: 1. Automated exposure control. 2. Adjustment of the mA and/or kV according to patient size. 3. Use of iterative reconstruction technique. Indication:Severe abdominal pain and vomiting. TECHNIQUE: CT abdomen and pelvis without IV contrast with multiplanar reformats. COMPARISON: 01/08/2017 FINDINGS: Limited evaluation of solid abdominal and pelvic organs due to lack of IV contrast. Heart is normal in size. No pericardial or pleural effusion. Clear lung bases. Noncontrast appearance of the liver, spleen, gallbladder, pancreas, adrenals within normal limits. Punctate bilateral nonobstructing renal stones. Multiple low attenuating lesions in the right kidney also seen appears exam from 2017 most likely simple cysts. No free pelvic fluid or ascites. No bowel obstruction. Normal appendix. Uterus is retroverted. Urinary bladder demonstrates no radiopaque stones. No pneumoperitoneum. No suspicious bony lesion. IMPRESSION: Limited evaluation of solid abdominal and pelvic organs due to lack of IV contrast. 1. No bowel obstruction. 2. Multiple punctate bilateral nonobstructing renal stones. 3. Multiple right renal lesions most likely simple cysts. Nonemergent ultrasound of the right kidney recommended. Electronically signed by: Shashi Suresh DO (09/21/2018 3:33 AM) [facility]
[2018-09-21 03:41] VITALS: BP 117/64
[2018-09-21] MEDS ORDERED: ONDA4TAB7 PO (03:42)
== END 2018-09-21 03:52 | disposition home or self-care (01) ==
LOC: ER 22:22
DX: R11.2 Nausea with vomiting, unspecified (principal); R19.7 Diarrhea, unspecified; R10.32 Left lower quadrant pain; R10.31 Right lower quadrant pain; M79.604 Pain in right leg; R42 Dizziness and giddiness; I10 Essential (primary) hypertension; Z98.890 Other specified postprocedural states; Z88.0 Allergy status to penicillin; Z88.8 Allergy status to other drugs, medicaments and biological substances
CPT/HCPCS: 36415; 74176; 80053; 81001; 83690; 85025; 87086; 96361; 96374; 96375; 99285; J2270; J2405; J3010; J7030; 87186

== ENCOUNTER → 2018-10-16 | Outpatient (CLI) | payer MEDICARE ==
[2018-09-21 03:41] VITALS: BP 117/64
[~2018-10-16] MED LIST changes: +ONDA4TAB7 PO
--- NOTE | 2018-10-17 03:06 | PAIN ---
DATE OF SERVICE: 10/16/2018 PROGRESS NOTE FOR PAIN CLINIC DIAGNOSES: Cervical spinal stenosis with cervicalgia. HISTORY OF PRESENT ILLNESS: The patient is a 62-year-old female who returns for followup status post medication management with oxycodone and gabapentin. The patient returns today reporting that she has a significant cough and has for the past several days, which seems to be related to allergic asthma that she is using an inhaler now, which seems to help as well. The patient reports she has some water in her basement and it seems to get worse after this happened with the increased moisture in the home. The patient reports otherwise doing fairly well with her neck and shoulder pain. He has still some pain in the base of the shoulders and neck bilaterally, mostly on the right side. The patient reports medications are doing well without significant side effects with about a 70% improvement overall. The patient reports her pain is a 9 on a scale of 10 over the past week at its worst, 8 on average, 8 at its least and is an 8 today. The patient reports it is aching and dull again in the right shoulder and arm to some extent, but mostly in the shoulders and the neck themselves without as much radiation to the right upper extremity. The patient reports she has been increasing her activity with greater distance walking, doing household activities until the cough, which she has developed over the past week or two and has had her sleeping in a recliner, which seems to exacerbate the shoulder pain to some extent as well. PHYSICAL EXAMINATION: VITAL SIGNS: The patient's blood pressure is 150/95, pulse 80, respirations 18, temperature is 98.2 degrees Fahrenheit, height is 5 feet 6 inches, weight is 214 pounds. GENERAL: The patient is awake, alert, oriented, appropriate, very pleasant demeanor. HEENT: Shows normocephalic, atraumatic. Extraocular movements are intact and symmetrical. Oral cavity: Mucous membranes are moist and pink. Dentition is intact. NECK: Shows anterior throat supple without palpable lymphadenopathy noted. Swallow reflex symmetrical. CHEST: Shows normal on inspection. Breath sounds clear to auscultation bilaterally with deep breaths eliciting a cough, but no rales, rhonchi or wheezes are auscultated. HEART: Shows S1, S2 clear. ABDOMEN: Soft, nontender, nondistended. BACK: Shows spine grossly in the midline. Cervical paraspinous muscle shows symmetrical on inspection, with palpation shows some moderate tenderness, but only diffusely in the inferior aspect of the cervical paraspinous muscles, again more on the right than the left. 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 The patient has good rotational motion of the cervical spine, both laterally greater than 45 degrees, closer to 90 degrees as well as full extension, full forward flexion without significant pain reported. EXTREMITIES: Upper extremities show deep tendon reflexes at 2+ biceps and triceps tendons. Motor exam is strong with approximately 4 on a scale of 5, but equal optical instrument assembler strength bilaterally. Peripheral pulses are 2+ in radial distribution. No peripheral edema is noted. Options were discussed with the patient. The patient's old chart was reviewed as her current medication regimen updated. Current review of systems updated today as well. We will refill the patient's medication and she has done quite well with this, has been on very stable regimen, has had appropriate K-TRACS reporting as well as appropriate urinalysis to date. We will refill the oxycodone and gabapentin for a 2-month period. The patient is given instruction as well as side effects to be aware of with medications and will follow up in approximately 2 months or sooner as necessary. CLARE MARLEY MD DR: VIVIANE/sebastian JOB#: [id number] / [id number]
== END | disposition home or self-care (01) ==
LOC: PNCL 09:29
PROVIDERS: ATTEND Anesthesiology
DX: M48.02 Spinal stenosis, cervical region (principal)
CPT/HCPCS: G0463

== ENCOUNTER → 2018-12-11 | Outpatient (CLI) | payer MEDICARE ==
[~2018-12-11] MED LIST changes: +ASPI-630 PO; +DIAZ2TAB3 PO; +DICL100G18 TP; +GABA600T7 PO; +LISI10TA2 PO; +OXYC1TAB8 PO
--- NOTE | 2018-12-11 15:55 | PAIN ---
DATE OF SERVICE: 12/11/2018 PROGRESS NOTE FOR PAIN CLINIC DIAGNOSES: Cervical spinal stenosis with cervicalgia. HISTORY OF PRESENT ILLNESS: The patient is a 63-year-old female, who returns for followup status post medication management with oxycodone as well as gabapentin. The patient reports she has been doing very well, has been on a very stable regimen. Still has some significant pain in the neck and shoulders, but doing much better with the medication. Again, she has been on a very stable regimen, very pleased with the progress as far the patient reports about a 75% improvement overall with the medications. Sometimes better, but some days better than it was where she reports with increased activity the pain does get worse, especially in her right shoulder and arm, but has a sharp pain recently. The patient reports most times a dull aching pain, rates as a 9 on a scale of 10 at its worst, at 8 on average and an 8 at its least and is an 8 today. The patient reports no new motor or sensory deficits or other complaints. The patient reports no new medications or changes. She is having a recent cough and is having a chest x-ray for that later today. PHYSICAL EXAMINATION: VITAL SIGNS: The patient's blood pressure 154/91, pulse is 81, respirations 18, temperature 98.8 degrees Fahrenheit. Height 5 feet 6 inches, weight is 215 pounds. GENERAL: The patient is awake, alert, oriented, appropriate, very pleasant demeanor. HEENT: Head shows normocephalic, atraumatic. Extraocular movements are intact and symmetrical. Oral cavity: Mucous membranes moist and pink. Dentition is intact. NECK: Shows anterior throat supple without palpable lymphadenopathy noted. Swallow reflex symmetrical. CHEST: Shows normal with inspection. Breath sounds clear to auscultation bilaterally. HEART: Shows S1, S2 clear. No rales, rhonchi or wheezes are heard, deep breath does initiate a cough, but is nonproductive. ABDOMEN: Soft, nontender, nondistended. BACK: Shows spine grossly in the midline. Cervical paraspinous muscle shows symmetrical on inspection and palpation shows some moderate tenderness diffusely in the middle and lower distribution of paraspinous muscles in the cervical distribution, but only diffusely without radiation. EXTREMITIES: The patient's upper extremities show deep tendon reflexes at 2+ in the biceps and triceps tendons are equal. Motor exam is strong with postal carrier strength rated at 5/5 as is bicep and tricep flexion and symmetrical. Peripheral pulses are 1+ posterior tibial. No peripheral edema is noted. Options were discussed with the patient. The patient's old chart was reviewed as her current medication regimen updated. Current review of systems updated today as well. We will refill the patient's oxycodone as well as gabapentin with instructions and side effects to be aware of each of the medications discussed with the patient. The patient had appropriate K-TRACS reporting as well as appropriate urinalysis to date and with a 2-month prescription. She will return to clinic in approximately 2 months or sooner if necessary. CLARE MARLEY MD DR: VIVIANE/nts JOB#: [id number] / [id number]
== END | disposition home or self-care (01) ==
LOC: PNCL 09:45
PROVIDERS: ATTEND Anesthesiology
DX: M48.02 Spinal stenosis, cervical region (principal)
CPT/HCPCS: G0463

== ENCOUNTER → 2019-01-01 | Outpatient (CLI) | payer MEDICARE, OTHER ==
[2018-12-12 15:00] VITALS: BP 144/87
[~2019-01-01] MED LIST changes: +CONTRAST GIVEN. MC PRN; +IOHEXOL 240 MG/ML 50ML VIAL. PO ONE; +IOHEXOL 300 MG/ML 100ML VIAL. IV ONE
--- NOTE | 2019-01-01 14:55 | RAD ---
EXAM: CT Abdomen and Pelvis with IV contrast CLINICAL HISTORY: Colon cancer. COMPARISON: 09/21/2018, 01/08/2017, 10/06/2015 TECHNIQUE: Helical CT of the abdomen and pelvis was performed following the administration of intravenous contrast. Axial, coronal and sagittal reformatted images were generated. PQRS compliance statement - One or more of the following individualized dose reduction techniques were utilized for this study: 1. Automated exposure control 2. Adjustment of the mA and/or kV according to patient size 3. Use of iterative reconstruction technique FINDINGS: Lower chest: Dependent patchy and linear opacities bilaterally likely atelectasis. Abdomen and Pelvis: Diffusely decreased hepatic attenuation likely hepatic steatosis. Gallbladder is normal. No biliary ductal dilatation. Pancreas is unremarkable. Spleen is normal in appearance. Adrenal glands are unremarkable. Symmetric nephrograms. Multiple bilateral renal cystic lesions are seen. Short appendix is otherwise unremarkable. Moderate colonic stool content is seen. No small or large bowel dilatation to suggest bowel obstruction. The colon cancer described in the clinical history is not definitively identified on the CT images. No abdominal or pelvic lymphadenopathy. No abdominal pelvic ascites. Atherosclerotic calcifications of aorta and main branches are seen. Bones: Focal sclerotic lesion in the right iliac bone is unchanged to at least 10/06/2015. Degenerative changes of the spine are seen. IMPRESSION: 1. No abdominal or pelvic lymphadenopathy 2. The colon cancer described in the clinical history is not definitively identified on the CT images. No evidence for metastatic disease. 3. Hepatic hypoattenuation be seen with hepatic steatosis. Electronically signed by: Scott Silva MD (01/01/2019 2:52 PM) [facility]
== END | disposition home or self-care (01) ==
LOC: CT 09:35
PROVIDERS: ATTEND Internal Medicine Hematology & Oncology
DX: C18.7 Malignant neoplasm of sigmoid colon (principal); K76.0 Fatty (change of) liver, not elsewhere classified; N28.9 Disorder of kidney and ureter, unspecified; I70.0 Atherosclerosis of aorta; M47.817 Spondylosis without myelopathy or radiculopathy, lumbosacral region; I10 Essential (primary) hypertension; F17.200 Nicotine dependence, unspecified, uncomplicated
CPT/HCPCS: 74177; Q9966; Q9967

== ENCOUNTER → 2019-02-05 | Outpatient (CLI) | payer MEDICARE, OTHER ==
[2018-12-12 15:00] VITALS: BP 144/87
[~2019-02-05] MED LIST changes: -CONTRAST GIVEN. MC PRN; -IOHEXOL 240 MG/ML 50ML VIAL. PO ONE; -IOHEXOL 300 MG/ML 100ML VIAL. IV ONE; +LISI1TAB23 PO; -LISI1TAB3 PO
--- NOTE | 2019-02-05 16:50 | RAD ---
EXAM: 3 views Right Shoulder DATE: 02/05/2019 12:00 AM INDICATION: Right shoulder pain, fall COMPARISON: No Prior FINDINGS: There is no evidence for acute fracture or dislocation. AC joint is congruent. AC joint degenerative changes are seen with small osteophytes. Glenohumeral joint degenerative changes are seen. Humeral head is not high riding. IMPRESSION: 1. No acute fracture or dislocation. 2. AC joint and glenohumeral joint degenerative changes. Electronically signed by: Scott Silva MD (02/05/2019 4:47 PM) [facility]
== END | disposition home or self-care (01) ==
LOC: RAD 11:01
PROVIDERS: ATTEND Family Medicine
DX: M19.011 Primary osteoarthritis, right shoulder (principal); M25.711 Osteophyte, right shoulder; W19.XXXA Unspecified fall, initial encounter; Y93.89 Activity, other specified; Y92.89 Other specified places as the place of occurrence of the external cause; Y99.8 Other external cause status
CPT/HCPCS: 73030

== ENCOUNTER → 2019-02-05 | Outpatient (CLI) | payer MEDICARE ==
[2018-12-12 15:00] VITALS: BP 144/87
--- NOTE | 2019-02-06 02:37 | PAIN ---
DATE OF SERVICE: 02/05/2019 PROGRESS NOTE FOR PAIN CLINIC DIAGNOSIS: Cervical spinal stenosis with cervicalgia. HISTORY OF PRESENT ILLNESS: The patient is a 63-year-old female who returns for followup status post medication management with oxycodone and gabapentin. The patient reports she is doing well with the pain medications. She has had some emotional stress lately as her grandson was shot and killed on her door step in November and she is grieving from that still. She is seeking some counseling starting tomorrow for this as well and also had bumped into a wall with the right shoulder. She is going for x-rays for this after her visit today. The patient reports otherwise with the medications about 70-75% improvement without significant side effects. These are helping her sleep to some extent too. Still has some pain in the base of the neck and in the right upper extremity. The patient reports the pain is a 9 on a scale of 10 at its worst over the past week average and least at 9 and 9 as well today. The patient reports no new motor or sensory deficits, no new changes. She is under a lot of emotional stress since our last visit. PHYSICAL EXAMINATION: VITAL SIGNS: The patient's blood pressure 123/88, pulse 88, respirations 16, temperature 97.8 degrees Fahrenheit, height is 5 feet 6 inches and weight is 213 pounds. GENERAL: The patient is awake, alert, oriented, appropriate, very pleasant demeanor. HEENT: Shows normocephalic, atraumatic. Extraocular movements are intact and symmetrical. Oral cavity: Mucous membranes moist and pink. Dentition is intact. NECK: Shows anterior throat supple without palpable lymphadenopathy noted. Swallow reflex symmetrical. CHEST: Shows normal on inspection. Breath sounds clear to auscultation bilaterally. HEART: Shows S1, S2 clear. No murmurs auscultated. ABDOMEN: Soft, nontender, nondistended. No palpable organomegaly is noted. No rebound or guarding demonstrated. BACK: Shows spine grossly in the midline, slightly exaggerated thoracic kyphosis and minor flattening of lumbar lordotic curvature. Cervical lordotic curvature is maintained. Cervical paraspinous muscle shows symmetrical on inspection, with palpation shows some mild tenderness diffusely throughout the upper, middle and lower distribution of the paraspinous musculature, but without radiation. The patient has good rotational motion of cervical spine, both laterally as well as extension and flexion without difficulty. EXTREMITIES: The patient's upper extremities show deep tendon reflexes at 2+ in the biceps, triceps tendons. Motor exam is strong, 5/5 with left dress designer and 4/5 on the right. The patient does have a right shoulder in a sling. Her right arm in a sling with some tenderness over the anterior and lateral aspect of the deltoid with palpation. Peripheral pulses are 2+ radial. No peripheral edema is noted. PLAN: Options were discussed with the patient. The patient's old chart was reviewed. Her current medication regimen updated. Current review of systems updated today as well. We will refill the patient's oxycodone for a 2-month period. She has had appropriate K-TRACS reporting as well as appropriate urinalysis to date. The patient will be given a 2-month refill medication with instructions, side effects to be aware of discussed. The patient will follow up in approximately 2 months or sooner if necessary. CLARE MARLEY MD DR: VIVIANE/sebastian JOB#: [id number] / [id number]
== END | disposition home or self-care (01) ==
LOC: PNCL 09:30
PROVIDERS: ATTEND Anesthesiology
DX: M48.02 Spinal stenosis, cervical region (principal)
CPT/HCPCS: G0463

== ENCOUNTER → 2019-03-10 | Outpatient (CLI) | payer MEDICARE, OTHER ==
[2018-12-12 15:00] VITALS: BP 144/87
[~2019-03-10] MED LIST changes: +IOHEXOL 240 MG/ML 50ML VIAL. IV ONE; +IOHEXOL 300 MG/ML 100ML VIAL. IV ONE
[2019-03-10 10:51] LABS: CREATININE 0.8 mg/dL (0.6-1.0); GFR 87.1
--- NOTE | 2019-03-10 12:45 | RAD ---
EXAM: CT OF THE CHEST, ABDOMEN AND PELVIS WITH CONTRAST. HISTORY: Colon cancer. TECHNIQUE: Computed tomography of the chest, abdomen and pelvis was performed after the intravenous administration of iodinated contrast. COMPARISON: 01/01/2019, 12/12/2018. FINDINGS: Bone windows reveal no suspicious lesions. There are no pathologically enlarged mediastinal or axillary lymph nodes. Calcified mediastinal lymph nodes are likely secondary to old granulomatous disease. There is no pleural or pericardial effusion. The heart is not enlarged. There are atherosclerotic calcifications of the coronary arteries. A subcutaneous nodule along the left upper back measures 1.5 cm, is unchanged and may represent a sebaceous cyst. Previously noted nodules in the upper lobes have mostly resolved. A tiny nodule anteriorly in the left upper lobe on image 13 is less prominent and measures only 2 mm. There are no clearly suspicious nodules currently. There is mild to moderate centrilobular emphysema. A calcified granuloma is noted in the left lower lobe. There are no suspicious hepatic lesions. Mild diffuse hepatic steatosis is suspected. The gallbladder, pancreas, and adrenal glands are unremarkable. There are calcified granulomas in the spleen. Small bilateral renal cysts measure up to 1.5 cm on the right. There are no pathologically enlarged lymph nodes. The appendix is not inflamed. A primary colon mass is not identified by CT. There is no small bowel obstruction. A small supraumbilical hernia contains only fat. IMPRESSION: 1. Previously noted small pulmonary nodules have decreased or completely resolved. This is consistent with treatment response or resolution of an inflammatory process. 2. No primary colonic mass is identified by CT. No evidence of metastatic disease elsewhere. 3. Small supraumbilical hernia containing only fat. 4. 1.5 cm subcutaneous nodule along the left upper back. Correlate clinically for a sebaceous cyst or similar lesions. *One or more of the following individualized dose reduction techniques were utilized for this examination: 1. Automated exposure control. 2. Adjustment of the mA and/or kV according to patient size. 3. Use of iterative reconstruction technique. Electronically signed by: Ladarius Johnson MD (03/10/2019 12:43 PM) [facility]
== END | disposition home or self-care (01) ==
LOC: CT 10:26
PROVIDERS: ATTEND Internal Medicine Hematology & Oncology
DX: C18.7 Malignant neoplasm of sigmoid colon (principal); J43.2 Centrilobular emphysema; K42.9 Umbilical hernia without obstruction or gangrene; J84.10 Pulmonary fibrosis, unspecified; N28.1 Cyst of kidney, acquired; I25.10 Atherosclerotic heart disease of native coronary artery without angina pectoris; R22.2 Localized swelling, mass and lump, trunk; I10 Essential (primary) hypertension; F17.200 Nicotine dependence, unspecified, uncomplicated
CPT/HCPCS: 36415; 71260; 74177; 82565; Q9966; Q9967

== ENCOUNTER → 2019-04-07 | Outpatient (CLI) | payer MEDICARE, OTHER ==
[2018-12-12 15:00] VITALS: BP 144/87
[~2019-04-07] MED LIST changes: +DIAZ2TAB PO; -IOHEXOL 240 MG/ML 50ML VIAL. IV ONE; -IOHEXOL 300 MG/ML 100ML VIAL. IV ONE
--- NOTE | 2019-04-07 16:51 | PAIN ---
DATE OF SERVICE: 04/07/2019 PROGRESS NOTE FOR PAIN CLINIC DIAGNOSIS: Cervical spinal stenosis with cervicalgia. HISTORY OF PRESENT ILLNESS: The patient is a 63-year-old female, who returns for followup status post medication management with the oxycodone and gabapentin. The patient reports she has been doing very well and has been on a very stable regimen. She is trying to quit smoking recently, which has caused some anxiety, but no increase in pain. The patient still reports pain in the base of the neck into the right shoulder as it was previously and she also has an orthopedic evaluation pending for a possible rotator cuff injury on the right side. The patient reports her pain is a 9 on a scale of 10 at its worst, average and at its least 9 on a scale of 10 at all times and it is a 9 today. The patient reports it awakens her from sleep about every 4 hours and the shoulder is becoming more painful with time in her neck. The patient reports her medication is doing well. No side effects with the medications. Reports approximately a 70% improvement overall with the medications and has been on a very stable regimen at this time. The patient reports the gabapentin helps also, but is not causing any side effects or sedation. The patient reports no new motor or sensory deficits, no new bowel or bladder incontinence or other complaints. PHYSICAL EXAMINATION: VITAL SIGNS: The patient's blood pressure 140/100, pulse 84, respirations 18, temperature 98.2 degrees Fahrenheit, height is 5 feet 6 inches, weight is 213 pounds. GENERAL: The patient is awake, alert, oriented, appropriate, very pleasant demeanor. HEENT: Shows normocephalic, atraumatic. The patient has lipoma on the right confucianist region. Oral cavity: Mucous membranes moist and pink. Dentition is intact. NECK: Shows anterior throat supple without palpable lymphadenopathy noted. Swallow reflex symmetrical. CHEST: Shows normal on inspection. Breath sounds clear bilaterally. HEART: Shows S1, S2 clear. ABDOMEN: Soft, nontender, and nondistended. BACK: Shows spine grossly in the midline. Cervical paraspinous muscle shows symmetrical on inspection, on palpation shows some mild tenderness to moderate tenderness in the inferior aspect of the cervical paraspinous musculature, slightly more on the right than the left, but into the superior medial trapezius as well, but without trigger points, without radiation. The patient has good rotational motion of cervical spine, both laterally as well as extension and flexion without significant difficulty. EXTREMITIES: Upper extremities show deep tendon reflexes 2+ in the biceps, triceps tendons. Motor exam is strong with 5/5 diving supervisor strength, bicep and tricep flexion and equal. Peripheral pulses are 2+ radial distribution. No peripheral edema is noted in bilateral upper extremities. PLAN: Options were discussed with the patient. The patient's old chart was reviewed as her current medication regimen updated. Current review of systems updated today as well. We will proceed with the refill of the patient's oxycodone as well as gabapentin. The patient was given instruction as well as side effects to be aware of with each. The patient had appropriate K-TRACS reporting as well as appropriate urinalysis to date. We will refill the patient's medications for 2-month period. The patient also will have the urinalysis drawn today as routine screening as well as renew of the patient's narcotic contract and was given a copy as well. The patient will return to the clinic in approximately 2 months or sooner as necessary. CLARE MARLEY MD DR: VIVIANE/sebastian JOB#: [id number] / [id number]
== END | disposition home or self-care (01) ==
LOC: PNCL 12:57
PROVIDERS: ATTEND Anesthesiology
DX: M48.02 Spinal stenosis, cervical region (principal)
CPT/HCPCS: G0463

== ENCOUNTER → 2019-05-19 | Outpatient (CLI) | payer MEDICARE, OTHER ==
[2018-12-12 15:00] VITALS: BP 144/87
--- NOTE | 2019-05-19 17:36 | RAD ---
SHOULDER 2+V RIGHT DATE: 05/19/2019 12:00 AM INDICATION: Shoulder pain COMPARISON: None. FINDINGS: Bones: There is no evidence of acute fracture or dislocation. Joints: Moderate degenerative changes of the acromioclavicular joint. Mild degenerative changes of the glenohumeral joint. The acromiohumeral distance is not narrowed. Miscellaneous: No abnormal soft tissue calcifications in the shoulder. IMPRESSION: No acute osseous abnormality. Mild glenohumeral and moderate AC joint degenerative changes. Electronically signed by: Darrin Trammell MD (05/19/2019 5:33 PM) [facility] – [place], [email or web address]
== END | disposition home or self-care (01) ==
LOC: RAD 13:41
PROVIDERS: ATTEND Family Medicine
DX: M19.011 Primary osteoarthritis, right shoulder (principal)
CPT/HCPCS: 73030

== ENCOUNTER → 2019-06-02 | Outpatient (CLI) | payer MEDICARE, OTHER ==
[2018-12-12 15:00] VITALS: BP 144/87
--- NOTE | 2019-06-02 23:49 | PAIN ---
DATE OF SERVICE: 06/02/2019 PROGRESS NOTE FOR PAIN CLINIC DIAGNOSES: Cervical spinal stenosis with cervicalgia. HISTORY OF PRESENT ILLNESS: The patient is a 63-year-old female who returns for followup status post medication management with oxycodone. The patient reports she has been doing very well with this, also taking gabapentin at 600 mg. The patient reports she is doing fairly well, has been on a very stable regimen. Her main complaint is right shoulder pain. She has noticed this has come up over the past few months without any specific injury that she is aware of, but some significant pain in the right shoulder. The patient reports she has had this x-rayed with her primary physician showing some arthritic changes, but would like to see a specialist about this and we will give her some options for that. The patient reports her pain symptom in the neck and shoulders is about a 9 on a scale of 10 at all times, worst, average and least over the past week and is a 9 today. The patient reports it is sharp and aching, dull at times, radiating into the right upper extremity as well, but worse with the shoulder, now aching and more painful with especially abduction and posterior rotation on the right shoulder. The patient reports the left side is doing fine, but again no new motor or sensory deficits, no new injuries or accidents. PHYSICAL EXAMINATION: VITAL SIGNS: The patient's blood pressure is 154/85, pulse 78, respirations are 18, temperature 98.1 degrees Fahrenheit, height is 5 feet 6 inches and weight is 210 pounds. GENERAL: The patient is awake, alert, oriented, appropriate, very pleasant demeanor. HEENT: Shows normocephalic, atraumatic. Extraocular movements are intact and symmetrical. Oral cavity: Mucous membranes moist and pink. Dentition is intact. NECK: Shows anterior throat supple without palpable lymphadenopathy noted. Swallow reflex symmetrical. CHEST: Shows normal on inspection. Breath sounds are clear bilaterally. HEART: Shows S1, S2 clear. ABDOMEN: Soft, nontender, nondistended. BACK: Shows spine grossly in the midline. Cervical paraspinous muscle shows symmetrical on inspection with normal cervical lordotic curvature with palpation shows some moderate tenderness diffusely in both the right and left cervical paraspinous musculature without radiation. The patient has good rotational motion, somewhat guarded to the right greater than 45 degrees, but with good extension, good flexion without extensive pain and without complaint of pain that is with extension or flexion. EXTREMITIES: The patient's upper extremities show deep tendon reflex is 2+ in the biceps, triceps tendons. Motor exam is approximately 4 on a scale of 5 with right-sided bicep and tricep flexion and 5/5 on the left. Laser/Electro Optics Technician strength is 5/5 and equal. Peripheral pulses are 2+ radial. No peripheral edema is noted. The patient's right shoulder shows some significant tenderness with palpation of the posterior deltoid as well as the lateral deltoid especially with abduction and with extension of the shoulder posteriorly shows significant pain, which loses strength on resistance. PLAN: Options were discussed with the patient. The patient's old chart was reviewed as her current medication regimen updated. Current review of systems updated today as well and we will refill the patient's medications. She was on very stable regimen of oxycodone at about 75% improvement with the medication alone without significant side effects. The patient has had appropriate K-TRACS reporting as well as appropriate urinalysis to date. We will refill the patient's medication for 2-month period. Also, recommend orthopedic evaluation of the patient's right shoulder. The patient will return to the clinic in approximately 2 months or sooner as necessary. CLARE MARLEY MD DR: VIVIANE/sebastian JOB#: [id number] / [id number]
== END | disposition home or self-care (01) ==
LOC: PNCL 09:26
PROVIDERS: ATTEND Anesthesiology
DX: M48.02 Spinal stenosis, cervical region (principal)
CPT/HCPCS: G0463

== ENCOUNTER 2019-06-16 20:25 | Emergency (ER) | payer MEDICARE, OTHER ==
[~2019-06-16] VITALS: Ht 167.6 cm; Wt 97.3 kg
[2019-06-16 21:46] LABS: BASO # 0.1 x10^3/uL (0.0-0.2); BASO % 2 % (0-3); EOS # 0.4 x10^3/uL (0.0-0.7); EOS % 7 % (0-3); HEMATOCRIT 37.8 % (36.0-47.0); HEMOGLOBIN 12.8 g/dL (12.0-15.5); LYMPH # 1.7 x10^3/uL (1.0-4.8); LYMPH % 27 % (24-48); MEAN CORPUSCULAR HEMOGLOBIN 31 pg (25-35); MEAN CORPUSCULAR HGB CONC 34 g/dL (31-37); MEAN CORPUSCULAR VOLUME 90 fL (79-100); MONO # 0.4 x10^3/uL (0.0-1.1); MONO % 7 % (0-9); NEUT # 3.7 x10^3/uL (1.8-7.7); NEUT % 58 % (31-73); PLATELET COUNT 229 x10^3/uL (140-400); WHITE BLOOD COUNT 6.4 x10^3/uL (4.0-11.0)
[2019-06-16] MEDS ORDERED: ONDANSETRON PF 4 MG/2 ML VIAL. IVP ONE (22:00)
[2019-06-16] MEDS ORDERED: MORPHINE SULFATE 4 MG/ML VIAL. IV ONE (22:00)
[2019-06-16 22:04] LABS: BILIRUBIN,URINE NEGATIVE (NEG); CLARITY,URINE CLEAR; COLOR,URINE YELLOW; NITRITE,URINE NEGATIVE (NEG); PH,URINE 5.5; PROTEIN,URINE NEGATIVE (NEG-TRACE)
[2019-06-16 22:33] LABS: BACTERIA,URINE FEW /HPF (0-FEW); RBC,URINE 0 /HPF (0-2); SQUAMOUS EPITHELIAL CELL,UR OCC /LPF
--- NOTE | 2019-06-16 22:35 | PHYS DOC ---
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 Symptoms onset was 3 days ago. Denies fever, cough, sore throat, chest pain and shortness of breath. Denies flank pain, urinary frequency and urgency. Recently completed antibiotics 5 days ago for treatment of urinary tract infection [] Review of Systems Review of Systems ROS as per HPI All other systems were reviewed and found to be within normal limits, except as documented in this note. Current Medications Current Medications Current Medications Medications (Trade) Dose Ordered Sig/Zane Start Time Stop Time Status Last Admin Dose Admin Morphine Sulfate (Morphine Sulfate) 4 mg 1X ONCE 06/16/19 22:00 06/16/19 22:01 DC 06/16/19 22:26 4 MG Ondansetron HCl (Zofran) 4 mg 1X ONCE 06/16/19 22:00 06/16/19 22:01 DC 06/16/19 22:26 4 MG Allergies Allergies Allergies Coded Allergies Type Severity Reaction Last Updated Verified Penicillins Allergy Intermediate Swelling 02/19/18 Yes cefuroxime Allergy Intermediate bBlisters hands. Joiny swelling 02/19/18 Yes ertapenem Allergy Intermediate Rash 02/19/18 Yes Physical Exam Physical Exam Constitutional: Well developed, well nourished, no acute distress, non-toxic appearance. [] HENT: Normocephalic, atraumatic, bilateral external ears normal, oropharynx moist, nose normal. [] Eyes: PERRLA, EOMI, conjunctiva normal. [] Neck: Normal range of motion, no tenderness. [] Cardiovascular:Heart rate regular rhythm, no murmur. [] Lungs & Thorax: Bilateral breath sounds clear to auscultation. [] Abdomen: Bowel sounds normal, soft, no tenderness. [] Skin: Warm, dry, no erythema, no rash. [] Back: No tenderness, no CVA tenderness. [] Extremities: No tenderness, no edema. [] Neurologic: Alert and oriented X 3, normal motor function, normal sensory function, no focal deficits noted. [] Psychologic: Affect normal, judgement normal, mood normal. [] Current Patient Data Vital Signs Vital Signs Date Time Temp Pulse Resp B/P (MAP) Pulse Ox O2 Delivery O2 Flow Rate FiO2 06/16/19 22:26 16 94 Room Air 06/16/19 21:00 98.7 85 113/79 (90) 98.7 Lab Values Laboratory Tests Test 06/16/19 21:38 06/16/19 21:40 06/16/19 22:28 06/17/19 00:48 White Blood Count 6.4 x10^3/uL (4.0-11.0) Red Blood Count 4.20 x10^6/uL (3.50-5.40) Hemoglobin 12.8 g/dL (12.0-15.5) Hematocrit 37.8 % (36.0-47.0) Mean Corpuscular Volume 90 fL (79-100) Mean Corpuscular Hemoglobin 31 pg (25-35) Mean Corpuscular Hemoglobin Concent 34 g/dL (31-37) Red Cell Distribution Width 13.0 % (11.5-14.5) Platelet Count 229 x10^3/uL (140-400) Neutrophils (%) (Auto) 58 % (31-73) Lymphocytes (%) (Auto) 27 % (24-48) Monocytes (%) (Auto) 7 % (0-9) Eosinophils (%) (Auto) 7 % (0-3) H Basophils (%) (Auto) 2 % (0-3) Neutrophils # (Auto) 3.7 x10^3/uL (1.8-7.7) Lymphocytes # (Auto) 1.7 x10^3/uL (1.0-4.8) Monocytes # (Auto) 0.4 x10^3/uL (0.0-1.1) Eosinophils # (Auto) 0.4 x10^3/uL (0.0-0.7) Basophils # (Auto) 0.1 x10^3/uL (0.0-0.2) Urine Color Yellow Urine Clarity Clear Urine pH 5.5 Urine Specific Hydro 1.025 Urine Protein Negative mg/dL (NEG-TRACE) Urine Glucose (UA) Negative mg/dL (NEG) Urine Ketones (Stick) Negative mg/dL (NEG) Urine Blood Negative (NEG) Urine Nitrite Negative (NEG) Urine Bilirubin Negative (NEG) Urine Urobilinogen Dipstick 1.0 mg/dL (0.2 mg/dL) Urine Leukocyte Esterase Negative (NEG) Urine RBC 0 /HPF (0-2) Urine WBC 1-4 /HPF (0-4) Urine Squamous Epithelial Cells Occ /LPF Urine Bacteria Few /HPF (0-FEW) Urine Mucus Slight /LPF Sodium Level 141 mmol/L (136-145) Potassium Level 3.8 mmol/L (3.5-5.1) Chloride Level 105 mmol/L (98-107) Carbon Dioxide Level 25 mmol/L (21-32) Anion Gap 11 (6-14) Blood Urea Nitrogen 12 mg/dL (7-20) Creatinine 0.8 mg/dL (0.6-1.0) Estimated GFR (Cockcroft-Gault) 87.1 BUN/Creatinine Ratio 15 (6-20) Glucose Level 109 mg/dL (70-99) H Calcium Level 8.9 mg/dL (8.5-10.1) Total Bilirubin 0.5 mg/dL (0.2-1.0) Aspartate Amino Transferase (AST) 14 U/L (15-37) L Alanine Aminotransferase (ALT) 19 U/L (14-59) Alkaline Phosphatase 102 U/L (46-116) Troponin I Quantitative < 0.017 ng/mL (0.000-0.055) Total Protein 7.4 g/dL (6.4-8.2) Albumin 3.2 g/dL (3.4-5.0) L Albumin/Globulin Ratio 0.8 (1.0-1.7) L Lipase 87 U/L (73-393) Influenza Type A Antigen Negative (NEGATIVE) Influenza Type B Antigen Negative (NEGATIVE) Laboratory Tests 06/16/19 21:38 Laboratory Tests 06/16/19 22:28 EKG EKG [EKG: reviewed] Radiology/Procedures Radiology/Procedures [] Course & Med Decision Making Course & Med Decision Making Pertinent Labs and Imaging studies reviewed. (See chart for details) [Labs reassuring. Vital signs stable. Improved while in the emergency department and patient abdominal pain free at time of discharge. Recommend expecting care and close follow-up with PCP. Return precautions reviewed. Patient verbalizes understanding agreement discharge instructions prior to departure.] Dragon Disclaimer Dragon Disclaimer This electronic medical record was generated, in whole or in part, using a voice recognition dictation system. Departure Departure Impression: Primary Impression: Abdominal pain Additional Impression: Upper respiratory infection Disposition: 01 HOME, SELF-CARE Condition: STABLE Referrals: Cassie CLINE MD (PCP) Scripts Promethazine HCl/Codeine (Prometh-Codein 6.25-10 mg/5 ml) 5 Ml Syrup 5 ML PO PRN Q4-6HRS PRN for cough MDD 30 Milliliter(s), #120 ML 0 Refills Prov: DEVEN ESPANA DO 06/17/19 Problem Qualifiers DEVEN ESPANA DO Jun 16, 2019 22:35
[2019-06-16 22:59] LABS: CALCIUM 8.9 mg/dL (8.5-10.1); CREATININE 0.8 mg/dL (0.6-1.0); GFR 87.1; POTASSIUM 3.8 mmol/L (3.5-5.1)
[2019-06-16 23:05] LABS: ALBUMIN 3.2 g/dL (3.4-5.0); ALBUMIN/GLOBULIN RATIO 0.8 (1.0-1.7); TOTAL BILIRUBIN 0.5 mg/dL (0.2-1.0); TOTAL PROTEIN 7.4 g/dL (6.4-8.2)
[2019-06-17 01:14] LABS: INFLUENZA A PATIENT NEGATIVE (NEGATIVE); INFLUENZA B PATIENT NEGATIVE (NEGATIVE)
[2019-06-17 02:15] VITALS: BP 121/69
[2019-06-17] MEDS ORDERED: PROM5SYR2 PO (02:28)
--- NOTE | 2019-06-17 07:05 | EKG ---
[facility] [address] [place] [address] Test Date: 2019-06-16 Test Time: 21:52:12 Pat Name: RUSSELL MEEK Department: Room: Gender: F Deckhand [employer]: : 1955 Requested By: DEVEN ESPANA Order Number: [id number] Reading MD: Measurements Intervals Ralph Rate: P: SD: QRS: QRSD: T: QT: QTc: Interpretive Statements
== END 2019-06-17 02:30 | disposition home or self-care (01) ==
LOC: ER 20:25
DX: R10.9 Unspecified abdominal pain (principal); J06.9 Acute upper respiratory infection, unspecified; I10 Essential (primary) hypertension; Z87.440 Personal history of urinary (tract) infections; Z98.890 Other specified postprocedural states; Z88.0 Allergy status to penicillin; Z88.8 Allergy status to other drugs, medicaments and biological substances
CPT/HCPCS: 36415; 80053; 81001; 83690; 84484; 85025; 87804; 93005; 96374; 96375; 99285; J2270; J2405; P9612

== ENCOUNTER → 2019-07-17 | Outpatient (CLI) | payer MEDICARE, OTHER ==
[2019-06-17 02:15] VITALS: BP 121/69
[~2019-07-17] MED LIST changes: +CONTRAST GIVEN. MC PRN; +IOHEXOL 240 MG/ML 50ML VIAL. PO ONE; +IOHEXOL 300 MG/ML 100ML VIAL. IV ONE; +PROM5SYR2 PO
--- NOTE | 2019-07-17 13:21 | RAD ---
CT CHEST ABD PELVIS W/CONTRAST Indication: Colon cancer Technique: Postcontrast CT imaging was performed of the chest, abdomen, pelvis, multiplanar reconstruction images submitted. Oral contrast was also given. One or more of the following individualized dose reduction techniques were utilized for this examination: 1. Automated exposure control 2. Adjustment of the mA and/or kV according to patient size 3. Use of iterative reconstruction technique. Comparison: 03/10/2019. CHEST: Findings: There is no new suspicious pulmonary nodularity, infiltrate, pleural pericardial fluid, or pneumothorax. There is again large calcified left lower lobe nodule. There is moderate dependent atelectasis right lower lobe. There is centrilobular emphysema. There is coronary calcification. Right precarinal node 0.9 cm short axis dimension is stable, no new significant chest lymphadenopathy. Round focus of density of the left posterior subcutaneous fat of the upper back region about 1.7 cm AP by 1.3 cm transverse is similar, extent near the skin surface. 0.6 cm hypodense lesion of the left thyroid gland is stable. IMPRESSION: 1. There is no new suspicious pulmonary nodularity or other evidence of metastatic disease to the chest. 2. There is coronary calcification. There is emphysema. 3. There is a stable nonspecific nodule of the posterior subcutaneous fat of the left upper back, extent near the skin surface. Abdomen pelvis FINDINGS: No new significant abnormality is identified of the liver, spleen, or pancreas. There is stable mild fullness of the superior left adrenal gland, no new adrenal nodularity. Gallbladder is present without obvious intraluminal abnormality by. Both kidneys enhance, no hydronephrosis. There are 5 hypodense foci of the right kidney as seen previously, largest mid pole about 1.7 cm with density measurements suggestive of cyst at 18 Hounsfield units, other smaller foci somewhat difficult to accurately characterize. There is a small hypodense lesion of the more medial left kidney 0.4 cm as seen previously, too small to further accurately characterize. There are small calcifications of the bilateral renal hilar regions although may be vascular in etiology. There is some scattered plaque of the abdominal aorta. No new significant lymphadenopathy is identified. Bowel is not significantly dilated. Normal appendix is visualized. There is no free fluid or free air. There is again small ventral fat-containing hernia image 41 series 4 neck about 0.5 cm, no internal bowel. There is mild lumbar dextroscoliosis. There is multilevel lumbar degenerative disc disease. There is minimal grade 1 anterior spondylolisthesis at L3-4 and multilevel lumbar facet degenerative change. There is bilateral L4-5 neural foramina compromise. Nonspecific sclerotic focus of the right iliac bone is stable. IMPRESSION: 1. There is no new evidence of metastatic disease to the abdomen or pelvis. 2. There is again small ventral fat-containing hernia in the abdomen, no internal bowel. 3. There are again hypodense foci of the kidneys more numerous on the right, largest compatible with cyst. Electronically signed by: Darrin Celestin MD (07/17/2019 1:18 PM) [email or web address]
== END | disposition home or self-care (01) ==
LOC: CT 09:18
PROVIDERS: ATTEND Internal Medicine Hematology & Oncology
DX: C18.7 Malignant neoplasm of sigmoid colon (principal); K43.9 Ventral hernia without obstruction or gangrene; J43.2 Centrilobular emphysema; R91.1 Solitary pulmonary nodule; I25.10 Atherosclerotic heart disease of native coronary artery without angina pectoris; N28.89 Other specified disorders of kidney and ureter; I70.0 Atherosclerosis of aorta; M51.36 Other intervertebral disc degeneration, lumbar region; N28.1 Cyst of kidney, acquired; M43.16 Spondylolisthesis, lumbar region; M41.86 Other forms of scoliosis, lumbar region
CPT/HCPCS: 71260; 74177; Q9966; Q9967

== ENCOUNTER → 2019-07-28 | Outpatient (CLI) | payer MEDICARE, OTHER ==
[~2019-07-28] MED LIST changes: -CONTRAST GIVEN. MC PRN; -IOHEXOL 240 MG/ML 50ML VIAL. PO ONE; -IOHEXOL 300 MG/ML 100ML VIAL. IV ONE
--- NOTE | 2019-07-28 13:05 | PAIN ---
DATE OF SERVICE: 07/28/2019 PROGRESS NOTE FOR PAIN CLINIC DIAGNOSES: Cervical spinal stenosis with cervicalgia. HISTORY OF PRESENT ILLNESS: The patient is a 63-year-old female who returns for followup status post medication management with oxycodone. The patient reports she is doing very well with this and has been on a very stable regimen, also gabapentin 600 mg 3 times daily. The patient reports between the 2 of these, her pain has decreased by about 65%-70% overall. The patient has recently been hospitalized with some abdominal pain and discovered to have a recurrent ventral hernia. She is having that evaluated with her general surgeon later this week. The patient reports otherwise doing fairly well on pain medications, tolerated well without any significant side effects. The patient reports still significant pain rated as a 10 on a scale of 10 at its worst over the past week, 6 on average and a 4 at its least and is a 6 today. The patient reports no new motor or sensory deficits, no new changes. PHYSICAL EXAMINATION: VITAL SIGNS: The patient's blood pressure 130/81, pulse 70, respirations 18, temperature 98.1 degrees Fahrenheit, height is 5 feet 6 inches, weight is 199 pounds. GENERAL: The patient is awake, alert, oriented, appropriate, very pleasant demeanor. HEENT: Shows normocephalic, atraumatic. Extraocular movements are intact and symmetrical. Oral cavity: Mucous membranes moist and pink. NECK: Shows anterior throat supple without palpable lymphadenopathy noted. Swallow reflex symmetrical. CHEST: Shows normal on inspection. Breath sounds are clear bilaterally. HEART: Shows S1, S2 clear. No murmurs auscultated. ABDOMEN: Soft, but some mild tenderness in the epigastric region with well-healed surgical scarring noted from previous hernia repair. No specific organomegaly. No rebound or guarding demonstrated. BACK: The patient's back shows spine grossly in the midline. Cervical paraspinous muscle shows symmetrical on inspection, on palpation shows some [id number] tenderness in the inferior aspect of the cervical paraspinous musculature bilaterally, but only diffusely without radiation. The patient has full rotational motion of cervical spine, both laterally as well as extension and flexion without significant increase in pain. EXTREMITIES: Upper extremities show deep tendon reflexes 2+ in the biceps and triceps tendons. Motor exam is strong with business intelligence developer strength rated at 5/5 as is bicep and tricep flexion. Peripheral pulses are 2+. No peripheral edema is noted bilaterally. Options were discussed with the patient. The patient's old chart was reviewed as her current medication regimen updated. Current review of systems updated today as well. We will refill the patient's medication, oxycodone and gabapentin. The patient has had appropriate K-TRACS reporting as well as appropriate urinalysis to date. We will refill this for a 2-month period. The patient will return to the clinic in approximately 2 months or sooner as necessary. CLARE MARLEY MD DR: VIVIANE/sebastian JOB#: [id number] / [id number]
== END | disposition home or self-care (01) ==
LOC: PNCL 10:25
PROVIDERS: ATTEND Anesthesiology
DX: M48.02 Spinal stenosis, cervical region (principal); M54.2 Cervicalgia
CPT/HCPCS: G0463

== ENCOUNTER → 2019-09-22 | Outpatient (CLI) | payer MEDICARE, OTHER ==
[~2019-09-22] MED LIST changes: -DICL100G18 TP; +DICL100G54 TP
--- NOTE | 2019-09-22 11:01 | PAIN ---
DATE OF SERVICE: 09/22/2019 PROGRESS NOTE FOR PAIN CLINIC DIAGNOSES: Cervical spinal stenosis with cervicalgia. HISTORY OF PRESENT ILLNESS: The patient is a 63-year-old female who returns for followup status post medication management with both gabapentin and oxycodone. The patient reports she is doing very well, has been on a very stable regimen, both these helping her pain significantly with the reduction of about 70-75% overall. She has been on this regimen for some time now with very good results and very good stability. The patient reports still some pain in the base of neck and shoulders as well as the upper and mid back, but very well tolerated with the medication. Again, no specific side effects. The patient reports she is sleeping better at night. Does awaken her occasionally, but not any sooner than every 5 hours or so. The patient reports the pain is a 9 on a scale of 10 at all times, average, worst and least and is a 9 today. The patient reports it is sharp and aching, base of the neck and shoulders, more on the right than the left, but present bilaterally, occasional headaches, but again very well controlled with the medication without side effects. The patient reports no new changes, no new bowel or bladder incontinence or other complaints. PHYSICAL EXAMINATION: VITAL SIGNS: The patient's blood pressure 121/80, pulse 96, respirations 18, temperature 98.9 degrees Fahrenheit, height is 5 feet 6 inches, weight is 199 pounds. GENERAL: The patient is awake, alert, oriented, appropriate, very pleasant demeanor. HEENT: Shows normocephalic, atraumatic. Extraocular movements are intact and symmetrical. Oral cavity: Mucous membranes moist and pink. Dentition is intact. NECK: Shows anterior throat supple without palpable lymphadenopathy noted. Swallow reflex symmetrical. CHEST: Shows normal on inspection. Breath sounds are clear bilaterally. HEART: Shows S1, S2 clear. No murmurs auscultated. ABDOMEN: Soft, nontender, nondistended. No palpable organomegaly is noted. No rebound or guarding demonstrated. BACK: Shows spine grossly in the midline, normal-appearing cervical lordotic curvature, some minor flattening thoracic kyphotic curvature. Cervical paraspinous muscle shows symmetrical on inspection, on palpation shows some moderate tenderness diffusely bilaterally going diffusely in the middle and lower cervical paraspinous musculature, again worse on the right than the left, but without specific trigger points, without radiation. The patient does show good rotational motion, slightly guarded to the right. Full range of motion past 45 degrees to the left. Full extension, full forward flexion without significant increase in pain. The patient shows good range of motion of the upper extremities and shoulders, also deep tendon reflexes. EXTREMITIES: Upper extremities showed 2+ in the biceps and triceps tendons. Motor exam is approximately 4 on a scale of 5, but symmetrical with biochemical development engineer strength bilaterally. Peripheral pulses are 2+ radial. No peripheral edema is noted. Options were discussed with the patient. The patient's old chart was reviewed as her current medication regimen updated. Current review of systems updated today as well. We will proceed with refill of the patient's medication for 2-month period. The patient had appropriate K-TRACS reporting as well as appropriate urinalysis to date. We refilled the medication for 2-month period with instructions, side effects to be aware of discussed with each of the medications. The patient will return to the clinic in approximately 2 months or sooner as necessary. CLARE MARLEY MD DR: VIVIANE/sebastian JOB#: [id number] / [id number]
== END | disposition home or self-care (01) ==
LOC: PNCL 09:32
PROVIDERS: ATTEND Anesthesiology
DX: M48.02 Spinal stenosis, cervical region (principal)
CPT/HCPCS: G0463

== ENCOUNTER → 2019-11-17 | Outpatient (CLI) | payer MEDICARE, OTHER ==
--- NOTE | 2019-11-17 10:35 | PAIN ---
DATE OF SERVICE: 11/17/2019 PROGRESS NOTE FOR PAIN CLINIC DIAGNOSIS: Cervicalgia with cervical spinal stenosis. HISTORY OF PRESENT ILLNESS: The patient is a 63-year-old female who returns for followup status post medication management with oxycodone. The patient reports she has been doing fairly well with this on a very stable regimen and gabapentin as well. The patient reports this helps also, but she does have some minor drowsiness, but states that she can tolerate that more she believes. The patient reports she is doing fairly well, still has pain in the neck and the right shoulder and upper extremity. The patient reports her pain is a 9 on a scale of 10 at all times in the last week, worst, least and average and is a 9 today. The patient reports it is aching, sometime it is sharp and shooting, but mostly aching in the base of neck and shoulders on the right side only. The patient reports no new motor or sensory deficits. Reports it awakens her from sleep about every 2 hours, especially if she lies on her right side. Reports no new changes. PHYSICAL EXAMINATION: VITAL SIGNS: The patient's blood pressure is 128/95, pulse 84, respirations 18, temperature 98.2 degrees Fahrenheit, weight is 203 pounds. GENERAL: The patient is awake, alert, oriented, appropriate, very pleasant demeanor. HEENT: Shows normocephalic, atraumatic. Extraocular movements are intact and symmetrical. Oral cavity shows mucous membranes moist and pink. Dentition is intact. NECK: Shows anterior throat supple without palpable lymphadenopathy noted. Swallow reflex symmetrical. CHEST: Shows normal on inspection. Breath sounds are clear. No rales, rhonchi or wheezes auscultated. HEART: Shows S1, S2 clear. No murmurs auscultated. ABDOMEN: Soft, nontender, nondistended. BACK: Shows spine grossly in the midline. Cervical paraspinous muscle shows symmetrical on inspection with a slight flattening of cervical lordotic curvature. Palpation shows some very firm rope-like musculature, very tender with palpation throughout the upper, middle and lower distribution of paraspinous muscles, slightly more tender on the right than the left, but present bilaterally, also into the superior medial trapezius and in the rhomboid distribution of the thoracic paraspinous muscles, more on the right than left as well, but without specific radiation. The patient shows diffuse tenderness throughout. The patient shows limited rotational motion secondary to pain to the right at about 45 degrees. Left shows closer to 90 degrees, full extension, full forward flexion performed without significant increase in pain, but with some guarding with extension only. EXTREMITIES: The patient's upper extremities show deep tendon reflexes at 1+ in the biceps, triceps tendons. Motor exam is strong with technical cable jointer strength rated at 4/5, but equal and symmetrical with technical cable jointer strength, bicep and tricep flexion. Peripheral pulses are 2+ radial. No peripheral edema bilaterally. Options were discussed with the patient. The patient's old chart was reviewed as her current medication regimen updated. Current review of systems updated today as well and we will proceed with refill of the patient's oxycodone with instructions and side effects to be aware of as well as a refill of gabapentin with instructions and side effects discussed. The patient will also be given Medrol Dosepak with instructions and side effects discussed. Also we recommended heat and massage therapy to the neck and shoulders as well as continued stretching. The patient will follow up in approximately 2 months and has had appropriate K-TRACS reporting as well as appropriate urinalysis to date. She will follow up in 2 months or sooner as necessary. CLARE MARLEY MD DR: VIVIANE/sebastian JOB#: [id number] / [id number]
== END | disposition home or self-care (01) ==
LOC: PNCL 09:11
PROVIDERS: ATTEND Anesthesiology
DX: M48.02 Spinal stenosis, cervical region (principal); Z79.82 Long term (current) use of aspirin; Z79.899 Other long term (current) drug therapy; Z88.0 Allergy status to penicillin; Z88.8 Allergy status to other drugs, medicaments and biological substances
CPT/HCPCS: G0463

== ENCOUNTER → 2020-01-12 | Outpatient (CLI) | payer MEDICARE, OTHER ==
[~2020-01-12] MED LIST changes: +ATOR40TA59 PO; +CLOP75TA PO; +METO-239 PO; +NITR100C6 PO; +SPIR25TA5 PO
--- NOTE | 2020-01-12 11:00 | PDOC ---
Progress Note - Pain Clinic Date of Service: DOS: DATE: 01/12/20 TIME: 10:54 Diagnosis: Dx: Cervicalgia with cervical spinal stenosis History or Present Illness: HPI: 64-year-old female returns for follow-up status post medication management with oxycodone and gabapentin. Patient reports he did very well but not very stable regimen without specific side effects and with about a 70 to 75% improvement with the medication. Patient reports within the last 3 weeks she did have a heart attack and was treated conservatively now is taking Plavix metoprolol and atorvastatin. Patient reports otherwise she is feeling much better patient does complain of pain base the neck and shoulders right and left essentially equal with some headaches as well rated as a 9 on a scale of 10 is worse over the past week 9 on average 8 at its least is a 9 today. Patient describes pain as aching sometimes sharp in the neck and shoulders more on the right than the left but mostly dull and achy. Reports it wakes her from sleep occasionally but not most nights she usually reposition to get back to sleep. Physical Exam: VS: Blood pressure is 139/90 pulse 85 respirations 18 temperature 98.0 F height is 5 feet 6 inches weight is 206 pounds PE: PHYSICAL EXAMINATION: GENERAL: The patient is awake, alert, oriented, appropriate, very pleasant demeanor HEENT: Shows normocephalic, atraumatic. Extraocular movements are intact and symmetrical. Oral cavity: Mucous membranes moist and pink. NECK: Shows anterior throat supple without palpable lymphadenopathy noted. Swallow reflex symmetrical. CHEST: Shows normal on inspection. Breath sounds are clear bilaterally, no rales rhonchi or wheezes auscultated. HEART: Shows S1, S2 clear. No murmurs auscultated. ABDOMEN: Soft, nontender, nondistended. No palpable organomegaly is noted. No rebound or guarding demonstrated. BACK: Shows spine grossly in the midline. Normal-appearing cervical lordotic curvature, neck shows good rotation of motion cervical spine with both extension and flexion right and left lateral rotation past 45 degrees without significant increase in pain with some minor guarding with extension only. There is slightly increased thoracic kyphosis, some minor flattening of the lumbar lordotic curvature. Lumbar paraspinous muscles show symmetrical on inspection, on palpation shows some moderate tenderness diffusely throughout the upper, middle and lower distribution of the paraspinous muscles bilaterally and also into the lower thoracic paraspinous musculature, firm and tender, but without specific trigger points, without radiation of pain. The patient has good rotational motion of the lumbar spine, both laterally as well as extension and flexion without significant difficulty. No tenderness over the spinous processes, sacrum or sacroiliac regions. EXTREMITIES: Upper extremities show deep tendon reflexes 2+ in the biceps and tricep tendons. Motor exam is 4 on a scale of 5 with right hot box spotter biceps and triceps flexion and 4/5 on the left. Peripheral pulses are 2+ radial. No peripheral edema is noted bilaterally. Lower extremities are warm and dry to touch, equal in color and appearance. SKIN: Shows warm and dry, good turgor. No edema. No sores, rashes or bruising throughout. Procedure: Procedure: Options discussed with the patient. Patient will chart was use her current medication regimen updated current review of systems updated today as well. We will refill patient's medication both oxycodone and gabapentin. Patient is had appropriate K tract report as well as appropriate urinalyses to date and we will refill the medication for 2-month period. Patient given instructions will side effects be aware of these are the medications patient return in approximate 2 months or sooner if necessary. Medication Injected: Med Injected: None Condition at Discharge: Condition at Discharge: Condition at discharge stable patient tolerated well had no complications. CLARE MARLEY MD Jan 12, 2020 11:00
== END | disposition home or self-care (01) ==
LOC: PNCL 10:00
PROVIDERS: ATTEND Anesthesiology
DX: M48.02 Spinal stenosis, cervical region (principal); Z88.0 Allergy status to penicillin; Z88.8 Allergy status to other drugs, medicaments and biological substances; Z79.82 Long term (current) use of aspirin; Z79.899 Other long term (current) drug therapy; Z87.891 Personal history of nicotine dependence; Z72.89 Other problems related to lifestyle
CPT/HCPCS: G0463

== ENCOUNTER → 2020-03-08 | Outpatient (CLI) | payer MEDICARE, OTHER ==
--- NOTE | 2020-03-08 10:21 | PDOC ---
Progress Note - Pain Clinic Date of Service: DOS: DATE: 03/08/20 TIME: 10:17 Diagnosis: Dx: Cervical spinal stenosis with cervicalgia History or Present Illness: HPI: 64-year-old female returns follow-up status post medication management with oxycodone and gabapentin. Patient reports she is doing very well with this with about a overall 65% improvement with the pain medication without significant side effects. Patient reports occasional constipation but is controlled with increased hydration. Patient reports no new motor or sensory deficits complains of pain base the neck and shoulders as it was previously more on the right than the left but manageable with the medication. We have discussed interventional techniques with her in the past but she has not done well with these traditionally and we have been managing her with the medication and has been very stable with this regimen. Patient reports no new motor or sensory deficits no new side effects no new other changes still complains of pain rated as a 9 on scale 10 is worse over the past week 8 on average 8 its least is an 8 today. Base the neck right shoulder greater than left described as aching and sharp at times in the shoulder itself without any specific injury or new motor or sensory deficits. Physical Exam: VS: Pressure is 157/96 pulse 87 respirations are 18 temperature 98.3 F height is 5 feet 6 inches weight is 209 pounds PE: PHYSICAL EXAMINATION: GENERAL: The patient is awake, alert, oriented, appropriate, very pleasant demeanor HEENT: Shows normocephalic, atraumatic. Extraocular movements are intact and symmetrical. Oral cavity: Mucous membranes moist and pink. NECK: Shows anterior throat supple without palpable lymphadenopathy noted. Swallow reflex symmetrical. CHEST: Shows normal on inspection. Breath sounds are clear bilaterally, no rales rhonchi or wheezes. HEART: Shows S1, S2 clear. No murmurs auscultated. ABDOMEN: Soft, nontender, nondistended, obese. No palpable organomegaly is noted. No rebound or guarding demonstrated. BACK: Shows spine grossly in the midline. Normal-appearing cervical lordotic curvature. Cervical spine shows good rotation motion both laterally greater than 45 degrees right and left was full extension full forward flexion going some minor pain with right and left lateral rotation but without radiation. There is slightly increased thoracic kyphosis, some minor flattening of the lumbar lordotic curvature. Lumbar paraspinous muscles show symmetrical on inspection, on palpation shows some moderate tenderness diffusely throughout the upper, middle and lower distribution of the paraspinous muscles bilaterally without radiation of pain. The patient has good rotational motion of the lumbar spine, both laterally as well as extension and flexion without significant difficulty. No tenderness over the spinous processes, sacrum or sacroiliac regions. EXTREMITIES: Upper extremities show deep tendon reflexes 2+ in the biceps and triceps tendons. 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 Peripheral pulses are 2+ posterior radial l. No peripheral edema is noted bilaterally. Upper extremities are warm and dry to touch, equal in color and appearance. SKIN: Shows warm and dry, good turgor. No edema. No sores, rashes or bruising throughout. Procedure: Procedure: Options were discussed with the patient. Patient chart was reviewed as her current medication regimen updated current review of systems updated today as well. We will refill patient's medication oxycodone and gabapentin for 2-month period. Patient has had appropriate K. Trax reporting as well as appropriate urinalyses to date and we will have the patient return on a 2-month interval. Patient will return to clinic in approximately 2 months or sooner if necessary. Patient was counseled as to activity level as well as medication regimen and side effects to be aware with each of these. Medication Injected: Med Injected: None Condition at Discharge: Condition at Discharge: Condition at discharge is stable. CLARE MARLEY MD Mar 08, 2020 10:21
== END ==
LOC: PNCL 09:52
PROVIDERS: ATTEND Anesthesiology
DX: M48.02 Spinal stenosis, cervical region (principal); I10 Essential (primary) hypertension; K21.9 Gastro-esophageal reflux disease without esophagitis; Z88.0 Allergy status to penicillin; Z88.8 Allergy status to other drugs, medicaments and biological substances; Z79.82 Long term (current) use of aspirin; Z79.899 Other long term (current) drug therapy; Z83.3 Family history of diabetes mellitus
CPT/HCPCS: G0463

== ENCOUNTER → 2020-05-03 | Outpatient (CLI) | payer MEDICARE, OTHER ==
--- NOTE | 2020-05-03 09:35 | PDOC ---
Progress Note - Pain Clinic Date of Service: DOS: DATE: 05/03/20 TIME: 09:31 Diagnosis: Dx: Cervicalgia with cervical spinal stenosis History or Present Illness: HPI: 64-year-old female returns to follow-up status post medication management with oxycodone and gabapentin. Patient ports he doing fairly well with his about 70% improvement with the medications without specific side effects of occasional constipation which he uses [id number] laxatives for and I increased hydration with good results. Patient reports still significant pain base the neck and shoulders right greater than left reports it is a 9 on scale 10 is worse with the past week 9 on average 8 its least is a 9 today. Patient reports she does have physical therapy ordered but has not started yet as it was ordered through her primary physician. Patient reports significant pain in the right shoulder and upper extremity more than the left worse with repetitive motions and weight lifting trying to reach overhead very difficult for her. Patient ports that sharp and stabbing at times as well. Patient reports no new motor or sensory deficits no new bowel or bladder incontinence or other complaints. Physical Exam: VS: Blood pressure is 139/88 pulse 83 respirations 18 temperature 90.4 F height is 5 feet 6 inches weight 214 pounds PE: PHYSICAL EXAMINATION: GENERAL: The patient is awake, alert, oriented, appropriate, very pleasant demeanor HEENT: Shows normocephalic, atraumatic. Extraocular movements are intact and symmetrical. Oral cavity: Mucous membranes moist and pink. Dentition is intact. NECK: Shows anterior throat supple without palpable lymphadenopathy noted. Swallow reflex symmetrical. CHEST: Shows normal on inspection. Breath sounds are clear bilaterally, no rales or rhonchi. HEART: Shows S1, S2 clear. No murmurs auscultated. ABDOMEN: Soft, nontender, nondistended, obese. No palpable organomegaly is noted. No rebound or guarding demonstrated. BACK: Shows spine grossly in the midline. Normal-appearing cervical lordotic curvature. Cervical paraspinous muscle shows symmetrical inspection on palpation shows moderate tenderness diffusely bilaterally diffusely without significant radiation no asymmetry no atrophy hypertrophy no trigger points. P atient has good rotation motion both laterally greater than 45 degrees closer to 90 degrees well is full extension full forward flexion without significant increase in pain. There is slightly increased thoracic kyphosis, some minor flattening of the lumbar lordotic curvature. EXTREMITIES: Upper extremities show deep tendon reflexes 2+ in the biceps and triceps tendons. Motor exam is 4 on a scale of 5 with right hip, biceps and triceps flexion and 4/5 on the left. Peripheral pulses are 2+ radial. No vaishali pheral edema is noted bilaterally. Upper extremities are warm and dry to touch, equal in color and appearance. SKIN: Shows warm and dry, good turgor. No edema. No sores, rashes or bruising throughout. Procedure: Procedure: Options were discussed with the patient. Patient's old chart was reviewed as her current medication regimen updated current review of systems updated today as well. We will refill patient's medication oxycodone 7.5 mg and gabapentin 600 mg for 2-month period. Patient has had appropriate K tracks report as well as appropriate urinalyses to date patient given instructions will side effects beware with the medications. Patient will follow up in approximate 2 months or sooner as necessary. Medication Injected: Med Injected: None Condition at Discharge: Condition at Discharge: Condition at discharge is stable. CLARE MARLEY MD May 03, 2020 09:35
== END | disposition home or self-care (01) ==
LOC: PNCL 08:59
PROVIDERS: ATTEND Anesthesiology
DX: M48.02 Spinal stenosis, cervical region (principal); M54.2 Cervicalgia; I25.10 Atherosclerotic heart disease of native coronary artery without angina pectoris; I10 Essential (primary) hypertension; M19.90 Unspecified osteoarthritis, unspecified site; G47.30 Sleep apnea, unspecified; F41.9 Anxiety disorder, unspecified; F32.9 Major depressive disorder, single episode, unspecified; Z87.891 Personal history of nicotine dependence; Z79.82 Long term (current) use of aspirin; Z79.899 Other long term (current) drug therapy; Z98.890 Other specified postprocedural states; Z88.0 Allergy status to penicillin; Z88.1 Allergy status to other antibiotic agents; Z88.8 Allergy status to other drugs, medicaments and biological substances; Z72.89 Other problems related to lifestyle; Z85.038 Personal history of other malignant neoplasm of large intestine; Z83.3 Family history of diabetes mellitus
CPT/HCPCS: G0463

== ENCOUNTER → 2020-07-06 | Outpatient (CLI) | payer MEDICARE, OTHER ==
[~2020-07-06] MED LIST changes: +LISI10TA16 PO; -LISI10TA2 PO
--- NOTE | 2020-07-06 15:34 | RAD ---
XR SHOULDER_RIGHT 2+ VIEWS 07/06/2020 11:06 AM INDICATION: Primary osteoarthritis COMPARISON: None available. TECHNIQUE: 3 views of the right shoulder are provided. FINDINGS/ IMPRESSION: There is no acute fracture or dislocation. Mild glenohumeral joint space narrowing with marginal oste ophytosis compatible with mild osteoarthrosis. Mild acromioclavicular osteoarthrosis. Bone mineraliza tion is within normal limits. Regional soft tissues are within normal limits. There is no soft tissue gas or osseous erosion. No radiopaque foreign body. Electronically signed by: Michelle Ryder MD (07/06/2020 3:31 PM) [id number]
== END ==
LOC: RAD 10:48
PROVIDERS: ATTEND Family Medicine
DX: M19.011 Primary osteoarthritis, right shoulder (principal)
CPT/HCPCS: 73030

== ENCOUNTER → 2020-07-06 | Outpatient (CLI) | payer MEDICARE, OTHER ==
--- NOTE | 2020-07-06 12:16 | PDOC ---
Progress Note - Pain Clinic Date of Service: DOS: DATE: 07/06/20 TIME: 12:12 Diagnosis: Dx: Cervicalgia with cervical spinal stenosis History or Present Illness: HPI: 64 female returns for follow-up status post medication management with gabapentin and oxycodone 7.5 mg. Patient reports he been doing very well with this but on very stable regimen still some pain in the neck and shoulders but her main complaint is right shoulder and arm pain with pain radiating into the right upper extremity. Patient has x-rays ordered for later today and encouraged to maintain that appointment. Patient reports otherwise the pain medication is doing fairly well except for the new shoulder pain on the right. Patient reports is about a 70% improvement overall to 75% without significant side effects. Patient reports pain in the right shoulder is her main complaint is a 9 on scale 10 is worse over the past week 9 on average 8 its least is a 9 today. Patient leesa mckeon and piotr reports no significant injury to the shoulder but as he had x-rays later as stated. Patient reports no new motor or sensory deficits no side effects as noted. Physical Exam: VS: Blood pressure is 161/94 pulse 99 respirations 16 temperature 98.3 F height is 5 foot 6 inches weight is 217 pounds PE: PHYSICAL EXAMINATION: GENERAL: The patient is awake, alert, oriented, appropriate, and very pleasant demeanor HEENT: Shows normocephalic, atraumatic. Extraocular movements are intact and symmetrical. Patient has a lipoma on the right temporal region. NECK: Shows anterior throat supple without palpable lymphadenopathy noted. Swallow reflex symmetrical. CHEST: Shows normal on inspection. Breath sounds are clear bilaterally, no rales or rhonchi. HEART: Shows S1, S2 clear. No murmurs auscultated. ABDOMEN: Soft, nontender, nondistended, obese. No palpable organomegaly is noted. No rebound or guarding demonstrated. BACK: Shows spine grossly in the midline. Normal-appearing cervical lordotic curvature. Cervical paraspinous muscles show symmetrical inspection palpation some moderate tenderness bilaterally, diffusely in the middle and lower cervical paraspinous musculature without atrophy hypertrophy or trigger points and without radiation. Patient does show good rotation motion cervical spine both laterally as well as extension flexion without significant difficulty. There is slightly increased thoracic kyphosis, some minor flattening of the lumbar lordotic curvature. Lumbar paraspinous muscles show symmetrical on inspection, on palpation shows some moderate tenderness diffusely throughout the upper, middle and lower distribution of the paraspinous muscles, but without specific trigger points, without radiation of pain. EXTREMITIES: Lower extremities show deep tendon reflexes 2 in the patellar and tendo calcaneus tendons. Motor exam is 4 on a scale of 5 with right dorsiflexion, extension, quadriceps and hamstring flexion and 4/5 on the left. Peripheral pulses are 1 posterior tibial. No peripheral edema is noted bilat erally. Lower extremities are warm and dry to touch, equal in color and appearance. Upper extremities show deep tendon reflexes 2+ in the bicep and tricep tendons, motor exam strong with reproducer strength 5 out of 5 as is biceps and triceps 5 out of 5 and equal bilaterally. Peripheral pulses are 2+ radial no peripheral edema in the upper extremities as well. SKIN: Shows warm and dry, good turgor. No edema. No sores, rashes or bruising throughout. Procedure: Procedure: Options were discussed with the patient. Patient will chart reviews her current medication regimen updated current review of systems updated today as well. We will refill patient's medication oxycodone and gabapentin with instructions side effects be aware of discussed each of the medications. Patient be given a 2- month refill as she has had appropriate K tracks report as well as appropriate urinalyses to date. We will have a urinalysis done today as part of routine screening as well as renewed narcotic contract today. Return to clinic approxi- 2 months or sooner if necessary. Medication Injected: Med Injected: None Condition at Discharge: Condition at Discharge: Condition at discharge is stable. CLARE MARLEY MD Jul 06, 2020 12:16
== END | disposition home or self-care (01) ==
LOC: PNCL 09:23
PROVIDERS: ATTEND Anesthesiology
DX: M48.02 Spinal stenosis, cervical region (principal); M54.2 Cervicalgia; I25.10 Atherosclerotic heart disease of native coronary artery without angina pectoris; I10 Essential (primary) hypertension; G47.30 Sleep apnea, unspecified; M19.90 Unspecified osteoarthritis, unspecified site; F41.9 Anxiety disorder, unspecified; F32.9 Major depressive disorder, single episode, unspecified; Z85.038 Personal history of other malignant neoplasm of large intestine; Z79.899 Other long term (current) drug therapy; Z98.890 Other specified postprocedural states; Z87.891 Personal history of nicotine dependence; Z79.82 Long term (current) use of aspirin; Z72.89 Other problems related to lifestyle; Z88.0 Allergy status to penicillin; Z88.1 Allergy status to other antibiotic agents; Z88.8 Allergy status to other drugs, medicaments and biological substances
CPT/HCPCS: G0463

== ENCOUNTER → 2020-08-31 | Outpatient (CLI) | payer MEDICARE, OTHER ==
--- NOTE | 2020-08-31 10:37 | PDOC ---
Progress Note - Pain Clinic Date of Service: DOS: DATE: 08/31/20 TIME: 10:32 Diagnosis: Dx: Cervicalgia with cervical spinal stenosis History or Present Illness: HPI: 64-year-old female returns follow-up status post medication management with oxycodone and gabapentin. Patient reports she is doing fairly well with this on her medication regimen but has had some significant pain increase in the right shoulder over the last few months. Patient reports she had a plain film of the x-ray and we reviewed that with her today showing some osteoarthritis also had a orthopedic evaluation scheduled but was unable to make it that day because of weather. Patient reports he has not made the appointment since that time and we will make those arrangements for her today. Patient reports has been under a lot of stress lately and this is increased her pain rates it as a 9 on scale 10 is worse over the past week 8 on average 8 its least is an 8 today patient ports aching and sharp base the neck and shoulder rating to the forearm and hand. Patient does have history of cervical spinal stenosis we discussed cervical epidural steroid injections and other modalities and patient is adamantly refusing any interventional techniques at this time. Patient reports no significant side effects with the medication and reports good about 70 to 75% improvement with the medications oxycodone and gabapentin. Physical Exam: VS: Blood pressure is 146/95 pulse 90 respirations 18 temperature 98.2 F height is 5 feet 6 inches weight 213 pounds PE: PHYSICAL EXAMINATION: GENERAL: The patient is awake, alert, oriented, appropriate, very pleasant demeanor HEENT: Shows normocephalic, atraumatic. Extraocular movements are intact and symmetrical. Oral cavity: Mucous membranes moist and pink. Dentition is intact. NECK: Shows anterior throat supple without palpable lymphadenopathy noted. Swallow reflex symmetrical. CHEST: Shows normal on inspection. Breath sounds are clear bilaterally, no rales or rhonchi. HEART: Shows S1, S2 clear. No murmurs auscultated. ABDOMEN: Soft, nontender, nondistended, obese. No palpable organomegaly is noted. No rebound or guarding demonstrated. BACK: Shows spine grossly in the midline. Normal-appearing cervical lordotic curvature. Cervical paraspinous muscles show symmetrical on inspection, on palpation shows a moderate tenderness diffusely in the inferior aspect of the paraspinous musculature. Patient has good rotation motion cervical spine however both right and left lateral closer to 90 degrees as well as full extension full forward flexion without significant difficulty. There is slightly increased thoracic kyphosis, some minor flattening of the lumbar lordotic curvature. Lumbar paraspinous muscles show symmetrical on inspection, on palpation shows some moderate tenderness diffusely throughout the upper, middle and lower distribution of the paraspinous muscles, but without specific trigger points, without radiation of pain. The patient has good rotational motion of the lumbar spine, both laterally as well as extension and flexion without significant difficulty. No tenderness over the spinous processes, sacrum or sacroiliac regions. EXTREMITIES: Lower extremities show deep tendon reflexes 2+ in the patellar and tendo calcaneus tendons. Motor exam is 4 on a scale of 5 with right dorsiflexion, extension, quadriceps and hamstring flexion and 4/5 on the left. Peripheral pulses are 1+ posterior tibial. No peripheral edema is noted bilaterally. Lower extremities are warm and dry to touch, equal in color and appearance. 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 Patient's right shoulder shows significant tenderness with rotation of motion past 45 degrees abduction and significantly tender with palpation over the acromioclavicular joint as well as the anterior aspect of the biceps tendon. SKIN: Shows warm and dry, good turgor. No edema. No sores, rashes or bruising throughout. Procedure: Procedure: Options discussed with patient. Patient chart reviews her current medication regimen updated current review of systems updated today as well. We will refill patient's oxycodone as well as gabapentin patient has had appropriate K tracts reporting as well as appropriate urinalyses to date limit this for a 2-month time period. Patient was given instructions well side effects aware of each of the medications will follow up in approximately 2 months or sooner as necessary. Again we will make arrangements for follow-up with her orthopedist regarding her right shoulder pain. Medication Injected: Med Injected: None Condition at Discharge: Condition at Discharge: Condition at discharge is stable. CLARE MARLEY MD Aug 31, 2020 10:37
== END | disposition home or self-care (01) ==
LOC: PNCL 09:25
PROVIDERS: ATTEND Anesthesiology
DX: M54.2 Cervicalgia (principal); M48.02 Spinal stenosis, cervical region; I25.10 Atherosclerotic heart disease of native coronary artery without angina pectoris; I10 Essential (primary) hypertension; G47.30 Sleep apnea, unspecified; M19.90 Unspecified osteoarthritis, unspecified site; F41.9 Anxiety disorder, unspecified; F32.9 Major depressive disorder, single episode, unspecified; Z87.891 Personal history of nicotine dependence; Z79.82 Long term (current) use of aspirin; Z79.899 Other long term (current) drug therapy; Z98.890 Other specified postprocedural states; Z82.49 Family history of ischemic heart disease and other diseases of the circulatory system; Z88.0 Allergy status to penicillin; Z88.1 Allergy status to other antibiotic agents; Z88.8 Allergy status to other drugs, medicaments and biological substances; Z83.3 Family history of diabetes mellitus
CPT/HCPCS: G0463

== ENCOUNTER → 2020-10-26 | Outpatient (CLI) | payer OTHER ==
--- NOTE | 2020-10-26 10:35 | PDOC ---
Progress Note - Pain Clinic Date of Service: DOS: DATE: 10/26/20 TIME: 10:31 Diagnosis: Dx: Cervical spinal stenosis with cervicalgia Right shoulder joint pain with osteoarthritis History or Present Illness: HPI: 64-year-old female returns for follow-up status post medication management with oxycodone and gabapentin. Patient had had some significant pain in her right shoulder and we did take x-rays of that showing some mild osteoarthritis still has difficulty moving the shoulder and we had arranged for her to be seen by or thopedics and she was unable to make that appointment and needs to reschedule it. Patient reports otherwise her medication is doing fairly well for her neck pain and upper back pain but the right shoulder becoming more more painful with repetitive motions specially weightlifting activities with repetitive motions and is disturbing her sleep to a moderate extent. Patient reports no new motor or sensory deficits no new bowel or bladder incontinence and no side effects with the medication overall about a 60 to 70% improvement with the medications alone except for the right shoulder. Patient rates her pain is a 9 on scale 10 is worse over the past week 9 on average 8 its least is an 8 today. Patient ports aching and sharp in the right shoulder also some dull pain the base of the neck bilaterally. Patient reports no new motor or sensory deficits or other complaints. Physical Exam: VS: Blood pressure is 143/97 pulse 91 respirations 16 temperature 98.0 F weight is 211 pounds. PE: PHYSICAL EXAMINATION: GENERAL: The patient is awake, alert, oriented, appropriate, very pleasant in d emeanor HEENT: Shows normocephalic, atraumatic. Extraocular movements are intact and symmetrical. Oral cavity: Mucous membranes moist and pink. . NECK: Shows anterior throat supple without palpable lymphadenopathy noted. Swallow reflex symmetrical. CHEST: Shows normal on inspection. Breath sounds are clear bilaterally. HEART: Shows S1, S2 clear. No murmurs auscultated. ABDOMEN: Soft, nontender, nondistended, obese. No palpable organomegaly is noted. No rebound or guarding demonstrated. BACK: Shows spine grossly in the midline. Normal-appearing cervical lordotic curvature. Cervical paraspinous muscles show symmetrical with inspection, on palpation some moderate tenderness diffusely in the middle and lower distribution the paraspinous muscles bilaterally into the superior medial trapezius as well. No specific trigger points bilaterally. Patient cervical spine shows good rotation motion both laterally with some mild guarding right and left lateral with full rotation past 45 degrees as well as full extension full forward flexion. There is slightly increased thoracic kyphosis, some minor flattening of the lumbar lordotic curvature. Lumbar paraspinous muscles show symmetrical on inspection, on palpation shows some moderate tenderness diffusely throughout the upper, middle and lower distribution of the paraspinous muscles, but without specific trigger points, without radiation of pain. The patient has good rotational motion of the lumbar spine, both laterally as well as extension and flexion without significant difficulty. No tenderness over the spinous processes, sacrum or sacroiliac regions. EXTREMITIES: Lower extremities show deep tendon reflexes 2+ in the patellar and tendo calcaneus tendons. Motor exam is 4 on a scale of 5 with right dorsiflexion, extension, quadriceps and hamstring flexion and 4/5 on the left. Peripheral pulses are 1+ posterior tibial. No peripheral edema is noted bilaterally. Lower extremities are warm and dry to touch, equal in color and appearance. Upper extremities radicular reflexes 2+ in the bicep tricep tendons motor exam is grossly 4 to scale 5 with contact worker strength bicep and tricep flexion and equal. Peripheral pulses are 2+ radial. Shoulder shrug is strong and intact without loss of strength on resistance. Patient's right shoulder shows significant tenderness with palpation over the acromioclavicular area as well as the anterior aspect of the biceps groove. Left side is nontender with full rotation. SKIN: Shows warm and dry, good turgor. No edema. No sores, rashes or bruising throughout. Procedure: Procedure: Options discussed with the patient. Patient chart reviews her current medication regimen updated current review of systems updated today as well. We will refill patient's oxycodone as well as gabapentin with instructions and side effects were discussed with each of the medications. Also encourage patient to reschedule orthopedic consultation regarding her right shoulder. Patient will return to the clinic in approximately 2 months or sooner if necessary. Patient has had appropriate K tracks report as well as appropriate urinalyses to date and we will make the prescriptions for a 2-month period. Medication Injected: Med Injected: None Condition at Discharge: Condition at Discharge: Condition at discharge is stable. CLARE MARLEY MD Oct 26, 2020 10:35
== END | disposition home or self-care (01) ==
LOC: PNCL 09:58
PROVIDERS: ATTEND Anesthesiology
DX: M48.02 Spinal stenosis, cervical region (principal); M54.2 Cervicalgia; M19.011 Primary osteoarthritis, right shoulder; I10 Essential (primary) hypertension; I25.10 Atherosclerotic heart disease of native coronary artery without angina pectoris; G47.30 Sleep apnea, unspecified; M19.90 Unspecified osteoarthritis, unspecified site; F41.9 Anxiety disorder, unspecified; F32.9 Major depressive disorder, single episode, unspecified; Z79.899 Other long term (current) drug therapy; Z98.890 Other specified postprocedural states; Z79.82 Long term (current) use of aspirin; Z87.891 Personal history of nicotine dependence; Z72.89 Other problems related to lifestyle; Z88.0 Allergy status to penicillin; Z88.1 Allergy status to other antibiotic agents
CPT/HCPCS: 99212; G0463

== ENCOUNTER → 2020-12-21 | Outpatient (CLI) | payer OTHER ==
[~2020-12-21] MED LIST changes: +OXYC-316 PO
--- NOTE | 2020-12-21 10:50 | PDOC ---
Progress Note - Pain Clinic Date of Service: DOS: DATE: 12/21/20 TIME: 10:45 Diagnosis: Dx: Cervical spinal stenosis with cervicalgia Right shoulder joint pain with osteoarthritis History or Present Illness: HPI: 65-year-old female returns for follow-up status post medication management with oxycodone as well as gabapentin 600 mg patient reports doing very well and has had some increased pain in her right shoulder but otherwise is doing fairly well with medication has been a very stable regimen no specific side effects with the medication or reports about a 70% improvement overall with the medication itself. Patient has had an emotionally stressful month that she has had 2 of her siblings with various medical causes over the past month has not had time to make his appointment to see her orthopedist as we had referred her last month for her right shoulder. Patient reports the pain medication is still doing fairly well with the shoulder with the only exception. Patient reports the pain is a 9 on scale 10 is worse over the past week 8 on average 8 its least is 8 today in the right shoulder and arm patient reports aching sharp constant severe worse with walking worse with swinging the arm repetitive motions lifting or any weightbearing and has difficulty with sleeping as well. Patient reports awakens her least once every 2 hours when she lays on her right side especially. Patient reports no new motor or sensory deficits no bowel or bladder incontinence. Physical Exam: VS: Blood pressure is 145/89 pulse 72 respirations 20 temperature 98.1 F weight is 214 pounds PE: PHYSICAL EXAMINATION: GENERAL: The patient is awake, alert, oriented, appropriate, very pleasant in demeanor HEENT: Shows normocephalic, atraumatic. Extraocular movements are intact and symmetrical. Oral cavity: Mucous membranes moist and pink. NECK: Shows anterior throat supple without palpable lymphadenopathy noted. Swallow reflex symmetrical. CHEST: Shows normal on inspection. Breath sounds are clear bilaterally. HEART: Shows S1, S2 clear. No murmurs auscultated. ABDOMEN: Soft, nontender, nondistended. No palpable organomegaly is noted. No rebound or guarding demonstrated. BACK: Shows spine grossly in the midline. Normal-appearing cervical lordotic curvature. Cervical paraspinous muscles show symmetrical inspection on palpation some moderate tenderness diffusely in the middle and lower distribution the paraspinous muscles bilaterally slightly more on the right than the left but without specific trigger points or radiation. Patient shows good rotation motion cervical spine both laterally as well as extension flexion without significant difficulty. There is slightly increased thoracic kyphosis, some minor flattening of the lumbar lordotic curvature. Lumbar paraspinous muscles show symmetrical on inspection, on palpation shows some moderate tenderness diffusely throughout the upper, middle and lower distribution of the paraspinous muscles, but without specific trigger points, without radiation of pain. The patient has good rotational motion of the lumbar spine, both laterally as well as extension and flexion without significant difficulty. No tenderness over the spinous processes, sacrum or sacroiliac regions. EXTREMITIES: Lower extremities show deep tendon reflexes 2 in the patellar and tendo calcaneus tendons. Motor exam is 4 on a scale of 5 with right dorsiflex ion, extension, quadriceps and hamstring flexion and 4/5 on the left. Peripheral pulses are 1+ posterior tibial. No peripheral edema is noted bilaterally. Lower extremities are warm and dry. Upper extremities show deep tendon reflexes 2+ in the bicep tricep tendons, motor exam is strong with digital editor strength rated at 4 out of 5 as is bicep and tricep flexion bilaterally and symmetrical. Patient's right shoulder shows significant tenderness with palpation of the anterior and posterior aspects of the joint itself and with abduction shows significant tenderness past 45 degrees with actively and passively left side is normal rotation without significant difficulty or pain reported. SKIN: Shows warm and dry, good turgor. No edema. No sores, rashes or bruising throughout. Procedure: Procedure: Options were discussed with patient. Patient chart was reviewed as her current medication regimen updated current review of systems updated today as well. We will refill patient's oxycodone and gabapentin and has been on very stable regimen and has had appropriate K tracks reporting as well as appropriate urinalyses to date. Patient was given instructions as well as side effects aware of each of the medications. Medication will be electronically prescribed. Patient was encouraged to follow-up with her orthopedist regarding her right shoulder as well. Patient return to clinic in approximately 4 weeks as scheduled. Medication Injected: Med Injected: None Condition at Discharge: Condition at Discharge: Condition at discharge is stable. CLARE MARLEY MD Dec 21, 2020 10:50
== END | disposition home or self-care (01) ==
LOC: PNCL 09:56
PROVIDERS: ATTEND Anesthesiology
DX: M48.02 Spinal stenosis, cervical region (principal); M19.011 Primary osteoarthritis, right shoulder; I10 Essential (primary) hypertension; K21.9 Gastro-esophageal reflux disease without esophagitis; F32.9 Major depressive disorder, single episode, unspecified; Z90.710 Acquired absence of both cervix and uterus; Z98.890 Other specified postprocedural states; Z79.899 Other long term (current) drug therapy; Z87.891 Personal history of nicotine dependence; Z72.89 Other problems related to lifestyle; Z88.0 Allergy status to penicillin; Z88.8 Allergy status to other drugs, medicaments and biological substances
CPT/HCPCS: 99212; G0463

== ENCOUNTER → 2021-02-15 | Outpatient (CLI) | payer OTHER ==
--- NOTE | 2021-02-15 10:53 | PDOC ---
Progress Note - Pain Clinic Date of Service: DOS: DATE: 02/15/21 TIME: 10:48 Diagnosis: Dx: Cervicalgia with cervical spinal stenosis Right shoulder pain with osteoarthritis Chronic pain syndrome History or Present Illness: HPI: 65-year-old female returns for follow-up status post medication management with oxycodone and gabapentin. Patient reports doing very well with this with about 75 to 80% improvement with the medications in reduction of pain but still some pain in the right shoulder she had plan to see orthopedist after last visit but has not done so very strong encouraged her to follow-up with the orthopedic surgeon regarding her right shoulder as it is becoming more more painful with time and use patient reports pain is aching and sharp in the right shoulder also pain in the neck and bilateral shoulders patient rates her pain as a 9 on scale 10 is worse over the past week 9 on average 8 its least is a 9 today. Patient reports it can be severe radiating cramping stabbing can be constant in the base the neck and the right shoulder with any repetitive motions or weight lifting weightbearing with the right arm. Patient reports it wakes her from sleep about twice a night patient reports no side effects with her medications and has had appropriate K tracks report as well as appropriate urinalyses to date. Physical Exam: VS: Blood pressure is 124/80 pulse 76 respirations 18 temperature 90.4 F height 5 feet 6 inches weight is 218 pounds. PE: PHYSICAL EXAMINATION: GENERAL: The patient is awake, alert, oriented, appropriate, very pleasant in demeanor HEENT: Shows normocephalic, atraumatic. Extraocular movements are intact and symmetrical. Oral cavity: Mucous membranes moist and pink. Dentition is intact. NECK: Shows anterior throat supple without palpable lymphadenopathy noted. Swallow reflex symmetrical. CHEST: Shows normal on inspection. Breath sounds are clear bilaterally, distant but no rales or rhonchi. HEART: Shows S1, S2 clear. No murmurs auscultated. ABDOMEN: Soft, nontender, nondistended, obese. No palpable organomegaly is noted. BACK: Shows spine grossly in the midline. Normal-appearing cervical lordotic curvature. Cervical paraspinous muscles show symmetrical inspection, palpation some moderate tenderness diffusely bilaterally diffusely without significant radiation. Shows good rotation of motion cervical spine slightly guarded with extension right and left lateral rotation past 45 degrees performed fully full forward flexion is performed without significant difficulty or pain reported. There is slightly increased thoracic kyphosis, some minor flattening of the lumbar lordotic curvature. Lumbar paraspinous muscles show symmetrical on inspection, on palpation shows some moderate tenderness diffusely throughout the upper, middle and lower distribution of the paraspinous muscles, but without specific trigger points, without radiation of pain. The patient has good rotational motion of the lumbar spine, both laterally as well as extension and flexion without significant difficulty. No tenderness over the spinous processes, sacrum or sacroiliac regions. EXTREMITIES: Lower extremities show deep tendon reflexes 2 in the patellar and tendo calcaneus tendons. Motor exam is 4 on a scale of 5 with right dorsif lexion, extension, quadriceps and hamstring flexion and 4/5 on the left. Peripheral pulses are 1+ posterior tibial. No peripheral edema is noted bilaterally. Lower extremities are warm and dry to touch, equal in color and appearance. Upper extremity show deep tendon reflexes 2+ in the bicep tricep tendons motor exam is roughly 4 to scale 5 with right bicep and tricep flexion and 5 out of 5 on the left. Patient right shoulder shows significant tenderness with palpation of the anterior aspect of the shoulder joint as well as acromioclavicular joint with tenderness with abduction past about 40 degrees. Left side shows full rotation without significant pain. SKIN: Shows warm and dry, good turgor. No edema. No sores, rashes or bruising throughout. Procedure: Procedure: Options discussed with the patient. Patient's old chart was viewed as her curre nt medication regimen updated current review of systems updated today as well. We will refill patient's oxycodone and gabapentin as patient had appropriate K tracks report as well as appropriate urinalyses to date. Patient given instructions well side effects aware of these locations with follow-up in approximately 4 weeks as scheduled. Medication Injected: Med Injected: None Condition at Discharge: Condition at Discharge: Condition at discharge is stable. CLARE MARLEY MD Feb 15, 2021 10:52
== END | disposition home or self-care (01) ==
LOC: PNCL 10:05
PROVIDERS: ATTEND Anesthesiology
DX: M48.02 Spinal stenosis, cervical region (principal); M19.011 Primary osteoarthritis, right shoulder; G89.4 Chronic pain syndrome; I10 Essential (primary) hypertension; I25.10 Atherosclerotic heart disease of native coronary artery without angina pectoris; F41.9 Anxiety disorder, unspecified; F32.9 Major depressive disorder, single episode, unspecified; Z87.891 Personal history of nicotine dependence; Z79.899 Other long term (current) drug therapy; Z98.890 Other specified postprocedural states; Z83.3 Family history of diabetes mellitus; Z88.0 Allergy status to penicillin; Z88.1 Allergy status to other antibiotic agents; Z88.8 Allergy status to other drugs, medicaments and biological substances
CPT/HCPCS: 99212; G0463

== ENCOUNTER → 2021-03-08 | Outpatient (CLI) | payer OTHER ==
[~2021-03-08] MED LIST changes: +HYDR-2765 PO; -LISI1TAB23 PO; +LISI1TAB35 PO
--- NOTE | 2021-03-08 15:37 | PDOC ---
Progress Note - Pain Clinic Date of Service: DOS: DATE: 03/08/21 TIME: 15:35 Diagnosis: Dx: Cervicalgia with cervical spinal stenosis Right shoulder joint pain with osteoarthritis History or Present Illness: HPI: Telemedicine visit with patient with identity verified with date of as well as full name, total time spent 11 minutes. Patient via telemedicine visit today regarding medication refill of hydrocodone patient has been on a very stable regimen with this medication for extended period of time and continues to do well with it with about a 75% plus improvement by her estimate and the pain with the medication patient reports no side effects with the medication and is requesting refill has been approximately 4-week since her last refill. Patient reports no new side effects no new concerns have some significant pain base the neck and shoulder specially on the right side worse with activity also patient is limiting this to some extent to control it and does report she has follow-up appointment with her orthopedic surgeon who is seen encouraged her strongly to follow-up with this as her shoulder pain seems to be getting somewhat worse. Patient understands and agrees. Patient is had appropriate K tracks report as well as appropriate urinalyses to date and we will refill patient's hydrocodone 7.5 mg with instructions side effects to be awareof, and we will refill her medications for 1 month period. Patient to follow-up in approximately 4 weeks as scheduled. Physical Exam: PE: CLARE MARLEY MD Mar 08, 2021 15:37
== END | disposition home or self-care (01) ==
LOC: PNCL 11:32
PROVIDERS: ATTEND Anesthesiology
DX: M48.02 Spinal stenosis, cervical region (principal); M19.011 Primary osteoarthritis, right shoulder; I10 Essential (primary) hypertension; I25.10 Atherosclerotic heart disease of native coronary artery without angina pectoris; G47.30 Sleep apnea, unspecified; F41.9 Anxiety disorder, unspecified; F32.9 Major depressive disorder, single episode, unspecified; Z79.899 Other long term (current) drug therapy; Z98.890 Other specified postprocedural states; Z87.891 Personal history of nicotine dependence; Z79.82 Long term (current) use of aspirin; Z88.0 Allergy status to penicillin; Z88.1 Allergy status to other antibiotic agents; Z88.8 Allergy status to other drugs, medicaments and biological substances
CPT/HCPCS: 99212; G0463

== ENCOUNTER → 2021-04-12 | Outpatient (CLI) | payer OTHER ==
--- NOTE | 2021-04-12 10:43 | PDOC ---
Progress Note - Pain Clinic Date of Service: DOS: DATE: 04/12/21 TIME: 10:39 Diagnosis: Dx: Cervical spinal stenosis with cervicalgia Right shoulder joint pain with osteoarthritis History or Present Illness: HPI: 65-year-old female returns for follow-up status post medication management with oxycodone 7.5 mg and gabapentin. Patient reports he is doing very well with both of these without any side effects and reports about a 70% improvement with the pain with the medications patient chief complaint is pain in the right neck and shoulder radiating into her right arm patient reports is a 9 on scale 10 is worst least and average over the past week is a [address] aching and sharp in the right upper extremity with radiating pain into the forearm and hand as well. Patient has appointment with her primary care physician later this afternoon and is requesting x-rays with her shoulder as well and neck. Patient reports no new other findings or complaints describes the pain as aching and sharp in the base the neck and the right upper extremity. Patient reports no bowel or bladder incontinence. Patient has had appropriate K tracks portables appropriate urinalyses to date and we will have a urinalysis drawn today as part of routine screening as well. Physical Exam: VS: Blood pressure is 132/82 pulse 96 respirations 18 temperature 98.1 Height 5 feet 6 inches weight is 220 pounds PE: PHYSICAL EXAMINATION: GENERAL: The patient is awake, alert, oriented, appropriate, very pleasant in demeanor HEENT: Shows normocephalic, atraumatic. Extraocular movements are intact and symmetrical. Oral cavity: Mucous membranes moist and pink. Dentition is intact. NECK: Shows anterior throat supple without palpable lymphadenopathy noted. Swallow reflex symmetrical. CHEST: Shows normal on inspection. Breath sounds are clear bilaterally, no rales rhonchi or wheezes auscultated. HEART: Shows S1, S2 clear. No murmurs auscultated. ABDOMEN: Soft, nontender, nondistended, obese. No palpable organomegaly is noted. BACK: Shows spine grossly in the midline. Normal-appearing cervical lordotic curvature. There is slightly increased thoracic kyphosis, some minor flattening of the lumbar lordotic curvature. Lumbar paraspinous muscles show symmetrical on inspection, on palpation shows some moderate tenderness diffusely throughout the upper, middle and lower distribution of the paraspinous muscles, but without specific trigger points, without radiation of pain. The patient has good rotational motion of the lumbar spine, both laterally as well as extension and flexion without significant difficulty. EXTREMITIES: Lower extremities show deep tendon reflexes 1 in the patellar and tendo calcaneus tendons. Motor exam is 4 on a scale of 5 with right dorsiflexion, extension, quadriceps and hamstring flexion and []/5 on the left. Peripheral pulses are 1+ posterior tibial. No peripheral edema is noted bilaterally. Lower extremities are warm and dry to touch, equal in color and appearance. Upper extremities show deep tendon reflexes 2+ in the bicep tricep tendons, motor exam strong with library supervisor strength rated 5 out of 5 right bicep triceps flexion is performed scale 5 left is 5 out of 5 right shoulder shows some moderate tenderness with palpation over the anterior deltoid but full rotation of motion good abduction as well as forward and rearward reach as well as reaching over her head with her right hand without significant limitation. SKIN: Shows warm and dry, good turgor. No edema. No sores, rashes or bruising throughout. Procedure: Procedure: Options discussed with patient. Patient old chart was reviewed, as well as her current medication regimen updated current review of systems updated today as well. We will refill patient's medication oxycodone 7.5 mg for 1 month supply. Patient has had appropriate K tracks reporting once again as of appropriate urinalyses to date and we will have a urinalysis drawn today as part of routine screening as well. Patient given instructions well side effects aware with the medication will follow up in approximate 4 weeks as scheduled. Medication Injected: Med Injected: None Condition at Discharge: Condition at Discharge: Condition at discharge is stable. CLARE MARLEY MD Apr 12, 2021 10:43
== END | disposition home or self-care (01) ==
LOC: PNCL 10:08
PROVIDERS: ATTEND Anesthesiology
DX: M48.02 Spinal stenosis, cervical region (principal); M19.011 Primary osteoarthritis, right shoulder; I10 Essential (primary) hypertension; I25.10 Atherosclerotic heart disease of native coronary artery without angina pectoris; G47.30 Sleep apnea, unspecified; F41.9 Anxiety disorder, unspecified; F32.9 Major depressive disorder, single episode, unspecified; Z87.891 Personal history of nicotine dependence; Z79.82 Long term (current) use of aspirin; Z79.899 Other long term (current) drug therapy; Z98.890 Other specified postprocedural states; Z88.0 Allergy status to penicillin; Z88.1 Allergy status to other antibiotic agents; Z88.8 Allergy status to other drugs, medicaments and biological substances
CPT/HCPCS: 99212; G0463

== ENCOUNTER 2021-04-27 13:54 | Emergency (ER) | payer OTHER ==
[~2021-04-27] VITALS: Ht 167.6 cm; Wt 94.5 kg
--- NOTE | 2021-04-27 14:08 | PHYS DOC ---
Past Medical History Past Medical History: Cancer, Hypertension, UTI Additional Past Medical Histor: neuropathy Past Surgical History: Other Additional Past Surgical Histo: colon resection, hernia repair Smoking Status: Former Smoker Alcohol Use: Rarely Drug Use: None General Adult EDM: Chief Complaint: DYSPNEA/RESPIRATORY DISTRESS HPI: HPI: Patient is a 65-year-old female who presents to the emergency department for multiple complaints that started on Sunday. Patient was seen on Sunday at [facility] and was diagnosed with COVID-19. Patient is reporting generalized body aches, chills, fatigue, shortness of breath, clear productive cough, loss of taste and smell, she is also reporting lower chest wall pain with coughing, she does not have the pain currently and it is not at rest. Patient states that she did not take any treatment for her symptoms today. Patient has a history of colon cancer and is in remission. Her primary care provider is Dr. Lyles. Patient denies any fevers, nausea, vomiting. Review of Systems: Review of Systems: Constitutional: See HPI Respiratory: See HPI Cardiovascular: See HPI GI: See HPI Musculoskeletal: See HPI I Heart Score: C/O Chest Pain: No (Not currently reporting any pain, chest wall pain only with cough) Risk Factors: Risk Factors: DM, Current or recent (<one month) smoker, HTN, HLP, family history of CAD, obesity. Risk Scores: Score 0 - 3: 2.5% MACE over next 6 weeks - Discharge Home Score 4 - 6: 20.3% MACE over next 6 weeks - Admit for Clinical Observation Score 7 - 10: 72.7% MACE over next 6 weeks - Early Invasive Strategies Allergies: Allergies: Allergies Coded Allergies Type Severity Reaction Last Updated Verified Penicillins Allergy Intermediate Swelling 02/19/18 Yes cefuroxime Allergy Intermediate bBlisters hands. Joiny swelling 02/19/18 Yes ertapenem Allergy Intermediate Rash 02/19/18 Yes Physical Exam: PE: Constitutional: Well developed, well nourished, no acute distress, non-toxic appearance. [] HENT: Normocephalic, atraumatic, bilateral external ears normal, oropharynx moist, no oral exudates, nose normal. [] Eyes: PERRL, EOMI, conjunctiva normal, no discharge. [] Neck: Normal range of motion, no tenderness, supple, no stridor. [] Cardiovascular:Heart rate tachycardic rhythm, chest pain reproducible, no murmur [] Lungs & Thorax: Patient has diminished lung throughout but worse in the right lower lobe, no hypoxia Abdomen: Bowel sounds normal, soft, no tenderness, no masses, no pulsatile masses. [] Skin: Warm, dry, no erythema, no rash. [] Back: No tenderness, normal range of motion Extremities: No tenderness, no cyanosis, no clubbing, ROM intact, no edema. [] Neurologic: Alert and oriented X 3, normal motor function, normal sensory function, no focal deficits noted. [] Psychologic: Affect normal, judgement normal, mood normal. [] Current Patient Data: Labs: Laboratory Tests Test 04/27/21 14:14 White Blood Count 6.0 x10^3/uL Red Blood Count 4.92 x10^6/uL Hemoglobin 15.0 g/dL Hematocrit 44.1 % Mean Corpuscular Volume 90 fL Mean Corpuscular Hemoglobin 31 pg Mean Corpuscular Hemoglobin Concent 34 g/dL Red Cell Distribution Width 14.0 % Platelet Count 115 x10^3/uL Neutrophils (%) (Auto) 85 % Lymphocytes (%) (Auto) 11 % Monocytes (%) (Auto) 3 % Eosinophils (%) (Auto) 0 % Basophils (%) (Auto) 0 % Neutrophils # (Auto) 5.1 x10^3/uL Lymphocytes # (Auto) 0.7 x10^3/uL Monocytes # (Auto) 0.2 x10^3/uL Eosinophils # (Auto) 0.0 x10^3/uL Basophils # (Auto) 0.0 x10^3/uL Sodium Level 139 mmol/L Potassium Level 3.7 mmol/L Chloride Level 101 mmol/L Carbon Dioxide Level 24 mmol/L Anion Gap 14 Blood Urea Nitrogen 16 mg/dL Creatinine 0.9 mg/dL Estimated GFR (Cockcroft-Gault) 75.6 BUN/Creatinine Ratio 18 Glucose Level 111 mg/dL Calcium Level 8.0 mg/dL Total Bilirubin 0.8 mg/dL Aspartate Amino Transf (AST/SGOT) 42 U/L Alanine Aminotransferase (ALT/SGPT) 31 U/L Alkaline Phosphatase 73 U/L Troponin I High Sensitivity 11 ng/L Total Protein 6.7 g/dL Albumin 3.3 g/dL Albumin/Globulin Ratio 1.0 Current Medications Medications (Trade) Dose Ordered Sig/Zane Route PRN Reason Start Time Stop Time Status Last Admin Dose Admin Sodium Chloride 1,000 ml @ 1,000 mls/hr Q1H IV 04/27/21 14:15 04/27/21 15:14 DC 04/27/21 14:15 Acetaminophen (Tylenol) 1,000 mg 1X ONCE PO 04/27/21 14:15 04/27/21 14:16 DC 04/27/21 14:15 EKG: EKG: [] EKG performed by ER staff at 1422 shows sinus tachycardia with a rate of 108, QTc of 395, no STEMI read by Dr. Rudolph at 1422. Radiology/Procedures: Radiology/Procedures: []PROCEDURE: PORTABLE CHEST 1V XR CHEST 1V 04/27/2021 2:09 PM INDICATION: Shortness of air COMPARISON: CT chest 07/17/2019 TECHNIQUE: Portable frontal view of the chest is provided. FINDINGS: The cardiomediastinal silhouette is within normal limits. Perihilar interstitial changes may represent interstitial pneumonitis of infectious/inflammatory etiology. There are no significant pleural effusions. There is no pulmonary vascular congestion. No pneumothorax. No suspicious osseous abnormality. IMPRESSION: Perihilar interstitial changes may reflect interstitial pneumonitis versus interstitial edema. Short-term follow two-view chest radiograph could be of benefit. Electronically signed by: Matthew Atkinson MD (04/27/2021 3:18 PM) [id number] DICTATED and SIGNED BY: MATTHEW ATKINSON MD DATE: 04/27/21 [id number] 0 Course & Med Decision Making: Course & Med Decision Making Pertinent Labs and Imaging studies reviewed. (See chart for details) [] Patient presents to the emergency department for multiple Covid 19 symptoms. Patient is noted to be mildly tachycardic in the emergency department and she is afebrile, her temperature is 99 degrees. Patient treated with IV fluids and Tylenol. Work-up in the ER also consisted of blood work, EKG, chest x-ray. Patient is not hypoxic while in the emergency department. Patient did not have any leukocytosis. Chest x-ray showed possible interstitial pneumonia which will be treated with antibiotic. Remainder of patient's blood work is unremarkable. Her heart rate has improved and she is 99% on room air. Her vital signs are stable. Patient advised to follow-up with her primary care provider. I discussed with patient all findings and diagnostic testing as well as the need to follow-up with PCP for further evaluation and treatment or return to the ER if any new or worsening symptoms. Strict return precautions were also discussed at length. Patient voiced understanding and agreement with the plan. Patient is hemodynamically stable at the time of disposition. Dragon Disclaimer: Dragon Disclaimer: This electronic medical record was generated, in whole or in part, using a voice recognition dictation system. Departure Departure Impression: Primary Impression: Pneumonia due to 2019 novel coronavirus Disposition: HOME / SELF CARE / HOMELESS Condition: GOOD Referrals: Cassie LYLES MD (PCP) Patient Instructions: Pneumonia, Adult Additional Instructions: You were seen in the emergency department for Covid symptoms. The symptoms are to be expected with COVID-19 viral illness. Please continue symptomatic treatment at home which includes increasing fluids, rest, Tylenol and ibuprofen for pain or fevers. I would advise you to purchase a pulse oximeter at the pharmacy and you can monitor your heart rate and oxygen saturations. You should return to the emergency department if your heart rate goes above 100 and your oxygen saturation goes below 90%. Your blood work was unremarkable. Your chest x-ray did show a pneumonia which will be treated with an antibiotic. Please start and finish the antibiotic completely. Please follow-up with your primary care provider tomorrow regarding your ER visit. Please return to the emergency department if you develop increased shortness of breath, chest pain, high fevers refractory to treatment, intractable nausea or vomiting, weakness, lethargy, palpitations or any new or worsening concerns. Scripts Azithromycin (AZITHROMYCIN TABLET) 250 Mg Tablet 1 PKG PO UD for 5 Days, #6 TAB 0 Refills 2 the first day followed by 1 for days 2-5 Prov: JS DIXON LVN [facility] 04/27/21 JS DIXON APRN Apr 27, 2021 14:08
[2021-04-27] MEDS ORDERED: IV NORMAL SALINE 1000ML BAG 1,000 ML IV SCH (14:15)
[2021-04-27] MEDS ORDERED: ACETAMINOPHEN 500 MG TABLET PO ONE (14:15)
[2021-04-27 14:56] LABS: BASO % 0 % (0-3); EOS % 0 % (0-3); HEMATOCRIT 44.1 % (36.0-47.0); LYMPH # 0.7 x10^3/uL (1.0-4.8); LYMPH % 11 % (24-48); MEAN CORPUSCULAR HEMOGLOBIN 31 pg (25-35); MEAN CORPUSCULAR HGB CONC 34 g/dL (31-37); MEAN CORPUSCULAR VOLUME 90 fL (79-100); MONO # 0.2 x10^3/uL (0.0-1.1); MONO % 3 % (0-9); NEUT # 5.1 x10^3/uL (1.8-7.7); NEUT % 85 % (31-73); PLATELET COUNT 115 x10^3/uL (140-400); RED BLOOD COUNT 4.92 x10^6/uL (3.50-5.40)
--- NOTE | 2021-04-27 15:21 | RAD ---
XR CHEST 1V 04/27/2021 2:09 PM INDICATION: Shortness of air COMPARISON: CT chest 07/17/2019 TECHNIQUE: Portable frontal view of the chest is provided. FINDINGS: The cardiomediastinal silhouette is within normal limits. Perihilar interstitial changes may represen t interstitial pneumonitis of infectious/inflammatory etiology. There are no significant pleural effusions. There is no pulmonary vascular congestion. No pneumothora x. No suspicious osseous abnormality. IMPRESSION: Perihilar interstitial changes may reflect interstitial pneumonitis versus interstitial edema. Short- term follow two-view chest radiograph could be of benefit. Electronically signed by: Michelle Ryder MD (04/27/2021 3:18 PM) [id number]
[2021-04-27 15:54] LABS: CREATININE 0.9 mg/dL (0.6-1.0); GFR 75.6; POTASSIUM 3.7 mmol/L (3.5-5.1)
[2021-04-27 16:06] LABS: ALBUMIN 3.3 g/dL (3.4-5.0); TOTAL BILIRUBIN 0.8 mg/dL (0.2-1.0); TOTAL PROTEIN 6.7 g/dL (6.4-8.2)
[2021-04-27 16:12] VITALS: BP 140/75
[2021-04-27] MEDS ORDERED: AZIT250T6 PO (16:20)
--- NOTE | 2021-04-27 18:56 | EKG ---
[facility] [address] [place] [address] Test Date: 2021-04-27 Test Time: 14:22:46 Pat Name: RUSSELL MEEK Department: Room: Gender: F Per Diem Clerk: : [id number] Requested By: JS DIXON Order Number: [id number] Reading MD: Christopher Poole Measurements Intervals [place] Rate: 108 P: -2 [place]: 108 QRS: -11 QRSD: 84 T: 36 QT: 292 QTc: 395 Interpretive Statements SINUS TACHYCARDIA LEFT ATRIAL ABNORMALITY LEFTWARD AXIS Electronically Signed On 04-28-2021 12:35:42 FRAME BENDER by Christopher Poole
== END 2021-04-27 16:59 | disposition home or self-care (01) ==
LOC: ER 13:54
DX: U07.1 COVID-19 (principal); J12.82 Pneumonia due to coronavirus disease 2019; I10 Essential (primary) hypertension; Z87.891 Personal history of nicotine dependence; Z88.0 Allergy status to penicillin; Z88.8 Allergy status to other drugs, medicaments and biological substances
CPT/HCPCS: 36415; 71045; 80053; 84484; 85025; 93005; 96360; 99285; J7030

== ENCOUNTER → 2021-05-06 | Outpatient (CLI) | payer OTHER ==
[2021-04-27 16:12] VITALS: BP 140/75
[~2021-05-06] MED LIST changes: +AZIT250T6 PO
--- NOTE | 2021-05-06 12:16 | NUR ---
Patient called states she needs her medications refilled verified patient and , pharmacy, next appointment, Patient states she has had the covid and has been in and out of the hospital since her last visit. states her level of pain is a 9 and has no constipation. denies new meds or allergies. ktracts is correct patient transferred to Dr Pina.
--- NOTE | 2021-05-06 12:29 | PDOC ---
Progress Note - Pain Clinic Date of Service: DOS: DATE: 05/06/21 TIME: 12:24 Diagnosis: Dx: Cervical spinal stenosis with cervicalgia Right shoulder joint pain with osteoarthritis History or Present Illness: HPI: Telemedicine visit today with patient today with identity verified with date of as well as full name, total time spent 11 minutes 65-year-old female via telemedicine visit for refill on oxycodone 7.5 mg patient is been doing very well with this and reports she has been feeling under the weather recently but her neck and shoulder pain is doing better with the medications without any side effects. Patient reports still significant pain base the neck and right shoulder with activity and with some colder weather changes recently but overall doing well with about a 70 to 75% improvement with the medications without side effects. Patient is had appropriate K tracks report as well as appropriate urinalyses to date we will refill patient's medication for a 4-week refill. Patient will follow up in approximately 4 weeks as scheduled. Physical Exam: PE: CLARE MARLEY MD May 06, 2021 12:29
== END | disposition home or self-care (01) ==
LOC: PNCL 12:04
PROVIDERS: ATTEND Anesthesiology
DX: M48.02 Spinal stenosis, cervical region (principal); M54.2 Cervicalgia; M19.011 Primary osteoarthritis, right shoulder; I25.10 Atherosclerotic heart disease of native coronary artery without angina pectoris; I10 Essential (primary) hypertension; G47.30 Sleep apnea, unspecified; F41.9 Anxiety disorder, unspecified; F32.9 Major depressive disorder, single episode, unspecified; Z79.82 Long term (current) use of aspirin; Z79.899 Other long term (current) drug therapy; Z98.890 Other specified postprocedural states; Z87.891 Personal history of nicotine dependence; Z88.0 Allergy status to penicillin; Z88.1 Allergy status to other antibiotic agents; Z88.8 Allergy status to other drugs, medicaments and biological substances
CPT/HCPCS: 99212; G0463

== ENCOUNTER → 2021-06-14 | Outpatient (CLI) | payer OTHER ==
--- NOTE | 2021-06-14 10:39 | PDOC ---
Progress Note - Pain Clinic Date of Service: DOS: DATE: 06/14/21 TIME: 10:34 Diagnosis: Dx: Cervicalgia with cervical spinal stenosis Right shoulder joint pain with osteoarthritis History or Present Illness: HPI: 65-year-old female returns for follow-up status post medication management with oxycodone 7.5 mg. Patient reports he is doing very well with this although still has significant pain in the base the neck and shoulder on the right side which is better with medication and has no side effects at this time. Patient r eports he is having increased to a gastrointestinal work-up patient had some polyps removed and has more to be removed in approximately 2 months from now. Patient reports otherwise doing fairly well the right shoulder is her main complaint with difficulty with lifting objects repetitive motions reaching overhead with her right arm difficulty sleeping on the right side as well. Gurpreet polanco reports that the oxycodone does decrease the pain significantly by about 65 to 70% most times without any significant side effects once again and makes it more tolerable for her to perform daily activities with the right upper extremity. Patient has had appropriate K tracks report as well as appropriate urinalyses to date as well. Physical Exam: VS: Blood pressure is 200 127 pulse is 91 respirations 18 temperature 98.6 F height is 5 feet 6 inches weight is 215 pounds PE: PHYSICAL EXAMINATION: GENERAL: The patient is awake, alert, oriented, appropriate, very pleasant in demeanor HEENT: Shows normocephalic, atraumatic. Extraocular movements are intact and symmetrical. Oral cavity: Mucous membranes moist and pink. Dentition is intact. NECK: Shows anterior throat supple without palpable lymphadenopathy noted. Swallow reflex symmetrical. CHEST: Shows normal on inspection. Breath sounds are clear bilaterally, distant but no rales or rhonchi bilaterally. HEART: Shows S1, S2 clear. No murmurs auscultated. ABDOMEN: Soft, nontender, nondistended. No palpable organomegaly is noted. BACK: Shows spine grossly in the midline. Normal-appearing cervical lordotic curvature. Cervical paraspinous muscles show symmetrical inspection, on palpation some moderate tenderness diffusely more in the right than the left middle and lower distribution the paraspinous musculature without specific trigger points very firm and tender with palpation diffusely. Patient does show good rotation motion though slightly guarded with far right lateral rotation as well as extension but not with forward flexion or left lateral rotation past 45 degrees. There is increased thoracic kyphosis, some flattening of the lumbar lordotic curvature. Lumbar paraspinous muscles show symmetrical on inspection, on palpation shows some moderate tenderness diffusely throughout the upper, middle and lower distribution of the paraspinous muscles without specific trigger points, without radiation of pain. The patient has good rotational motion of the lumbar spine, both laterally as well as extension and flexion without significant difficulty. No tenderness over the spinous processes, sacrum or sacroiliac regions. EXTREMITIES: Lower extremities show deep tendon reflexes 1+ in the patellar and tendo calcaneus tendons. Motor exam is 5 on a scale of 5 with right dorsiflexion, extension, quadriceps and hamstring flexion and 5/5 on the left. Peripheral pulses are 1+ posterior tibial. No peripheral edema is noted bilaterally. Lower extremities are warm and dry. Upper extremity show deep tendon reflexes 2+ in the bicep tricep tendons motor exam is 4 to scale 5 with right billing representative strength bicep and tricep flexion 5 out of 5 on the left. Patient's right shoulder shows significant tenderness with palpation of the anterior aspect as well as the posterior aspect of the joint itself and in the bicipital groove significant tenderness anteriorly also difficulty with abduction greater than 45 degrees to the right with significant pain reported to the top of the shoulder as well as posteriorly. Left side shows full rotation motion without significant difficulty or pain reported. SKIN: Shows warm and dry, good turgor. No edema. No sores, rashes or bruising throughout. Procedure: Procedure: Options were discussed with the patient. Patient chart was reviewed as her current medication regimen updated current review of systems updated today as well. We will prescribe oxycodone 7.5 mg with instructions side effects to be aware of once again discussed. Patient has been on a very stable regimen with the medication, has had appropriate K tracks reporting as well as a proper urinalyses to date. Patient was given a 30-day supply and will have follow-up in approximately 30 days as scheduled. Medication Injected: Med Injected: None Condition at Discharge: Condition at Discharge: Condition at discharge is stable. CLARE MARLEY MD Jun 14, 2021 10:39
== END | disposition home or self-care (01) ==
LOC: PNCL 09:47
PROVIDERS: ATTEND Anesthesiology
DX: M48.02 Spinal stenosis, cervical region (principal); M19.011 Primary osteoarthritis, right shoulder; I25.10 Atherosclerotic heart disease of native coronary artery without angina pectoris; I10 Essential (primary) hypertension; G47.30 Sleep apnea, unspecified; M19.90 Unspecified osteoarthritis, unspecified site; F41.9 Anxiety disorder, unspecified; F32.9 Major depressive disorder, single episode, unspecified; Z87.891 Personal history of nicotine dependence; Z79.899 Other long term (current) drug therapy; Z98.890 Other specified postprocedural states; Z88.0 Allergy status to penicillin; Z88.8 Allergy status to other drugs, medicaments and biological substances
CPT/HCPCS: 99212; G0463

== ENCOUNTER → 2021-07-12 | Outpatient (CLI) | payer OTHER ==
--- NOTE | 2021-07-12 15:50 | NUR ---
Patient called states she needs a refill on her pain medication, verified name ,, pharmacy, and next appointment. patient states her level of pain is a 9 denied any new medical problems, constipation. ktracts checked and is correct. Dr Pina will speak with patient.
--- NOTE | 2021-07-12 17:36 | PDOC ---
Progress Note - Pain Clinic Date of Service: DOS: DATE: 07/12/21 TIME: 17:29 Diagnosis: Dx: Cervical spinal stenosis Right shoulder joint pain with osteoarthritis History or Present Illness: HPI: Telemedicine visit today with patient's identity verified with full name as well as full date of , total time spent 12 minutes 65-year-old female via telemedicine visit today for right refill of oxycodone 7.5 mg patient is been doing very well at this point very stable regimen has chronic pain with pain in the right shoulder she reports getting worse with recent activity although without any deficits in the strength of the right upper extremity. Patient has had appropriate K tracks portables appropriate urinalyses to date. We will refill patient's oxycodone 7.5 mg patient was given instructions as well as side effects beware with medication and will follow up in approximate 30 days as scheduled. Physical Exam: PE: CLARE MARLEY MD Jul 12, 2021 17:36
--- NOTE | 2021-07-14 12:38 | FMN ---
PT PROBLEMS Addendum for visit of July 12, 2021 Telemedicine visit using telephone, voice only CLARE MARLEY MD Jul 14, 2021 12:38
== END | disposition home or self-care (01) ==
LOC: PNCL 16:01
PROVIDERS: ATTEND Anesthesiology
DX: M19.011 Primary osteoarthritis, right shoulder (principal); M48.02 Spinal stenosis, cervical region; I25.10 Atherosclerotic heart disease of native coronary artery without angina pectoris; I10 Essential (primary) hypertension; G47.30 Sleep apnea, unspecified; M19.90 Unspecified osteoarthritis, unspecified site; F41.9 Anxiety disorder, unspecified; F32.9 Major depressive disorder, single episode, unspecified; Z79.82 Long term (current) use of aspirin; Z79.899 Other long term (current) drug therapy; Z98.890 Other specified postprocedural states; Z87.891 Personal history of nicotine dependence; Z88.0 Allergy status to penicillin; Z88.1 Allergy status to other antibiotic agents; Z88.8 Allergy status to other drugs, medicaments and biological substances; Z83.3 Family history of diabetes mellitus
CPT/HCPCS: 99212; G0463

== ENCOUNTER → 2021-08-02 | Outpatient (CLI) | payer OTHER ==
--- NOTE | 2021-08-02 17:43 | RAD ---
DATE: 08/02/2021 EXAM: MG 2D BILAT SCREENING HISTORY: Screening COMPARISON: 06/23/2015, 07/07/2016 This study was interpreted with the benefit of Computerized Aided Detection (CAD). Breast Density: SCATTERED The breast parenchyma shows scattered fibroglandular densities. Breast pare nchyma level B. FINDINGS: No suspicious mass, suspicious calcification, or architectural distortion. IMPRESSION: No evidence of malignancy. BI-RADS CATEGORY: 1 NEGATIVE RECOMMENDED FOLLOW-UP: 12M 12 MONTH FOLLOW-UP PQRS compliance statement: Patient information was entered into a reminder system with a target due d ate for the next mammogram. Mammography is a sensitive method for finding small breast cancers, but it does not detect them all a nd is not a substitute for careful clinical examination. A negative mammogram does not negate a clin ically suspicious finding and should not result in delay in biopsying a clinically suspicious abnorma lity. "Our facility is accredited by the [employer] Mammography Program." Electronically signed by: Priya Oliva MD (08/02/2021 5:40 PM) [id number]
== END ==
LOC: MAMMO 12:49
PROVIDERS: ATTEND Family Medicine
DX: Z12.31 Encounter for screening mammogram for malignant neoplasm of breast (principal)
CPT/HCPCS: 77067

== ENCOUNTER → 2021-08-09 | Outpatient (CLI) | payer OTHER ==
--- NOTE | 2021-08-09 11:26 | PDOC ---
Progress Note - Pain Clinic Date of Service: DOS: DATE: 08/09/21 TIME: 11:21 Diagnosis: Dx: Right shoulder joint pain with osteoarthritis Cervical spine stenosis History or Present Illness: HPI: 65-year-old female returns for follow-up status post medication management with oxycodone 7.5 mg. Patient reports she still doing very well with this is on a very stable regimen pain controlled fairly well about 75% her chief complaint is right shoulder joint pain which is getting worse over time without any specific injury patient reports is getting worse to raise her arm past about 45 degrees to her side as well as unable to reach overhead with her right arm without helping it with the left arm patient reports is a 9 on a scale of 10 at its worst over the past week 9 on average 8 at its least and is a 9 today patient report is aching and sharp can be stabbing in the anterior aspect of the shoulder on and off in intensity better with sitting or laying down but awakens from sleep about 2-3 times a night. Patient reports no loss of motor function but she has been dropping items with the right hand feels numb and tingly at times secondary to the pain as well in the shoulder. Patient also reports some pain in the base of the neck but more on the right side as well but without traveling to the shoulder. Again, patient has had appropriate K tracks reporting as well as appropriate urinalyses to date with her medications. Physical Exam: VS: Blood pressure is 183/95 pulse 63 respirations 18 temperature 98.1 F height 5 feet 6 inches weight is 218 pounds. PE: PHYSICAL EXAMINATION: GENERAL: The patient is awake, alert, oriented, appropriate, very pleasant in demeanor HEENT: Shows normocephalic, atraumatic. Extraocular movements are intact and symmetrical. Oral cavity: Mucous membranes moist and pink. Dentition is intact. NECK: Shows anterior throat supple without palpable lymphadenopathy noted. Swallow reflex symmetrical. CHEST: Shows normal on inspection. Breath sounds are clear bilaterally, no rales rhonchi or wheezes auscultated. HEART: Shows S1, S2 clear. No murmurs auscultated. ABDOMEN: Soft, nontender, nondistended. No palpable organomegaly is noted. BACK: Shows spine grossly in the midline. Normal-appearing cervical lordotic curvature. Cervical paraspinous muscles show symmetrical inspection, on palpation some moderate tenderness diffusely bilaterally but without specific radiation without trigger points or asymmetry. There is moderately increased thoracic kyphosis, some flattening of the lumbar lordotic curvature. Lumbar paraspinous muscles show symmetrical on inspection, on palpation shows some moderate tenderness diffusely throughout the upper, middle and lower distribution of the paraspinous muscles without specific trigger points, without radiation of pain. The patient has good rotational motion of the lumbar spine, both laterally as well as extension and flexion without significant difficulty. No tenderness over the spinous processes, sacrum or sacroiliac regions. EXTREMITIES: Lower extremities show deep tendon reflexes 1+ in the patellar and tendo calcaneus tendons. Motor exam is 5 on a scale of 5 with right dorsiflexion, extension, quadriceps and hamstring flexion and 5/5 on the left. Peripheral pulses are 1+ posterior tibial. No peripheral edema is noted bilaterally. Lower extremities are warm and dry to touch, equal in color and appearance. Upper extremities show deep tendon reflexes 2+ in the bicep tricep tendons, motor exam is 4 to scale 5 on the right and 5 out of 5 on the left dragger out strength bicep and tricep flexion. Right shoulder shows significant tenderness with palpation of the anterior deltoid as well as into the superior aspect of the bicep, also pain on the lateral epicondyle which is significant as well. SKIN: Shows warm and dry, good turgor. No edema. No sores, rashes or bruising throughout. Procedure: Procedure: Options were discussed with the patient. Patient chart reviews her current medication regimen updated current review of systems updated today as well. We will obtain x-rays of the right shoulder as has been over 1 year since she has had these shoulder studied, also will prescribe new medication of meloxicam 15 mg once daily. Patient given instructions well side effects aware with the new medication. Also, as patient has had appropriate K tracks reporting as well as appropriate urinalyses to date we will refill patient's oxycodone 7.5 mg #120 for 30-day supply. Patient was given instructions well side effects beware with all the medications and will follow up in approximately 30 days as scheduled. Medication Injected: Med Injected: None Condition at Discharge: Condition at Discharge: Condition at discharge is stable. CLARE MARLEY MD Aug 09, 2021 11:26
== END | disposition home or self-care (01) ==
LOC: PNCL 10:40
PROVIDERS: ATTEND Anesthesiology
DX: M48.02 Spinal stenosis, cervical region (principal); M19.011 Primary osteoarthritis, right shoulder; I25.10 Atherosclerotic heart disease of native coronary artery without angina pectoris; I10 Essential (primary) hypertension; G47.30 Sleep apnea, unspecified; M19.90 Unspecified osteoarthritis, unspecified site; F41.9 Anxiety disorder, unspecified; F32.9 Major depressive disorder, single episode, unspecified; Z79.82 Long term (current) use of aspirin; Z79.899 Other long term (current) drug therapy; Z87.891 Personal history of nicotine dependence; Z98.890 Other specified postprocedural states; Z88.0 Allergy status to penicillin; Z88.1 Allergy status to other antibiotic agents
CPT/HCPCS: 99212; G0463

== ENCOUNTER → 2021-08-12 | Outpatient (CLI) | payer OTHER ==
--- NOTE | 2021-08-14 18:02 | RAD ---
Bilateral shoulders 3 views each: Reason for examination: Shoulder pain and weakness. Comparison is made to previous examination of the right shoulder dated 07/06/2020. At the right shoulder, no acute fracture or dislocation is evident. The bone density is normal. No ab normal periosteal reaction is seen. There is some hypertrophic spurring at the acromion with some ellen rowing of the acromiohumeral joint space. Remaining joint spaces are unchanged. At the left shoulder no acute fracture or dislocation is seen. The bone density is normal. No abnorma l periosteal reaction is seen. Joint spaces are maintained. IMPRESSION: Hypertrophic spurring at the acromial with some narrowing of the acromiohumeral joint space. No acute fracture or dislocation evident. Electronically signed by: Trang Cortez MD (08/14/2021 5:59 PM) [facility]
== END ==
LOC: RAD 14:45
PROVIDERS: ATTEND Anesthesiology
DX: M25.511 Pain in right shoulder (principal); M25.512 Pain in left shoulder; I25.10 Atherosclerotic heart disease of native coronary artery without angina pectoris; I10 Essential (primary) hypertension; G47.30 Sleep apnea, unspecified; M19.90 Unspecified osteoarthritis, unspecified site; F41.9 Anxiety disorder, unspecified; F32.9 Major depressive disorder, single episode, unspecified; Z79.82 Long term (current) use of aspirin; Z87.891 Personal history of nicotine dependence; Z79.899 Other long term (current) drug therapy; Z98.890 Other specified postprocedural states
CPT/HCPCS: 73030-50

== ENCOUNTER → 2021-09-21 | Outpatient (CLI) | payer OTHER ==
--- NOTE | 2021-09-21 10:41 | PDOC ---
Progress Note - Pain Clinic Date of Service: DOS: DATE: 09/21/21 TIME: 10:37 Diagnosis: Dx: Cervical spinal stenosis Right shoulder joint pain with osteoarthritis History or Present Illness: HPI: 65-year-old female returns for follow-up status post medication management with oxycodone 7.5 mg as well as gabapentin 600 mg 3 times daily. Patient reports doing very well with both of these very stable regimen with each of medications without any side effects. Patient reports no significant pain in the right shoulder and upper extremity we did obtain x-rays of the shoulders on her last visit and went over the results with her today as well with some spurring hypertrophic in the right shoulder with narrowing of the acromiohumeral joint space left shoulder looking essentially normal. Patient reports still significant pain specially when laying on her right side is disturbs her sleep frequently patient reports that the pain medication however is doing well with decreasing the pain by about 70% with most patient reports no specific side effects with the medication and patient has had appropriate K tracks report as well as appropriate urinalyses to date as well. Physical Exam: VS: Blood pressure is 156/86 pulse 94 respirations 18 temperature 90.5 F height 5 feet 6 inches weight 212 pounds. PE: PHYSICAL EXAMINATION: GENERAL: The patient is awake, alert, oriented, appropriate, very pleasant in demeanor HEENT: Shows normocephalic, atraumatic. Extraocular movements are intact and s ymmetrical. Oral cavity: Mucous membranes moist and pink. Dentition is intact. NECK: Shows anterior throat supple without palpable lymphadenopathy noted. Swallow reflex symmetrical. CHEST: Shows normal on inspection. Breath sounds are clear bilaterally, distant but no rales rhonchi or wheezes auscultated. HEART: Shows S1, S2 clear. No murmurs auscultated. ABDOMEN: Soft, nontender, nondistended. No palpable organomegaly is noted. BACK: Shows spine grossly in the midline. Normal-appearing cervical lordotic curvature. There is mildly increased thoracic kyphosis, some flattening of the lumbar lordotic curvature. Lumbar paraspinous muscles show symmetrical on inspection, on palpation shows some moderate tenderness diffusely throughout the upper, middle and lower distribution of the paraspinous muscles without specific trigger points, without radiation of pain. The patient has good rotational motion of the lumbar spine, both laterally as well as extension and flexion without significant difficulty. No tenderness over the spinous processes, sacrum or sacroiliac regions. EXTREMITIES: Lower extremities show deep tendon reflexes 1+ in the patellar and tendo calcaneus tendons. Motor exam is 5 on a scale of 5 with right dorsiflexion, extension, quadriceps and hamstring flexion and 5/5 on the left. Peripheral pulses are 1+ posterior tibial. No peripheral edema is noted bilaterally. Lower extremities are warm and dry. Upper extremities show deep tendon reflexes 2+ in the bicep tricep tendons, motor exam is positive for scale 5 on the right with biceps triceps and purchasing administrator as well as 5 out of 5 on the left. Patient's right shoulder shows significant tenderness with abduction past about 40 degrees as well as with attempting to reach over her head with her right arm when she must use the left hand to help her left shoulder shows good rotation of motion without significant difficulty. SKIN: Shows warm and dry, good turgor. No edema. No sores, rashes or bruising throughout. Procedure: Procedure: Options were discussed with patient. Patient chart was reviewed as her current medication regimen updated current review of systems updated today as well. We will refill patient's oxycodone 7.5 mg as well as gabapentin 600 mg with instructions and side effects beware discussed each of medications. Patient has had appropriate K tracks reporting once again as well as appropriate urinalyses to date and we will make this a 30-day prescription. Patient will follow up in approximate 30 days as scheduled. Medication Injected: Med Injected: None Condition at Discharge: Condition at Discharge: Condition at discharge is stable. CLARE MARLEY MD September 21, 2021 10:41
== END | disposition home or self-care (01) ==
LOC: PNCL 10:10
PROVIDERS: ATTEND Anesthesiology
DX: M48.02 Spinal stenosis, cervical region (principal); M19.011 Primary osteoarthritis, right shoulder; I10 Essential (primary) hypertension; I25.10 Atherosclerotic heart disease of native coronary artery without angina pectoris; G47.30 Sleep apnea, unspecified; F41.9 Anxiety disorder, unspecified; F32.9 Major depressive disorder, single episode, unspecified; Z79.82 Long term (current) use of aspirin; Z79.899 Other long term (current) drug therapy; Z98.890 Other specified postprocedural states; Z88.0 Allergy status to penicillin; Z88.1 Allergy status to other antibiotic agents
CPT/HCPCS: 99212; G0463